=== PATIENT | male | born 1980 | race Caucasian/White ===

== ENCOUNTER → 2017-07-30 | Outpatient (CLI) | payer BC ==
[~2017-07-30] MED LIST: NORCO 325 MG-51 TAB PO
== END ==
LOC: COL.RAD 10:07
DX: K76.0 Fatty (change of) liver, not elsewhere classified (principal); R10.11 Right upper quadrant pain; R14.0 Abdominal distension (gaseous); R19.7 Diarrhea, unspecified

== ENCOUNTER → 2017-08-12 | Outpatient (CLI) | payer BC | LOC: COL.RAD 08:01 | DX: K82.8 Other specified diseases of gallbladder (principal); R19.7 Diarrhea, unspecified | CPT/HCPCS: A9537 ==

== ENCOUNTER 2017-09-22 08:35 | Day surgery (SDC) | payer BC ==
[~2017-09-22] VITALS: Ht 185.4 cm; Wt 123.4 kg
[2017-09-22 08:59] VITALS: BP 134/85; PULSE 66; TEMP 98.1
[2017-09-22] MEDS ORDERED: HYZAAR 12.5 MG-1 TAB PO (09:03)
[2017-09-22] MEDS ORDERED: PRILOSEC 20MG20 MG PO (09:03)
[2017-09-22] MEDS ORDERED: CARAFATE 1GM1 G PO (09:04)
[2017-09-22] MEDS ORDERED: INDERAL LA160 MG PO (09:04)
[2017-09-22] MEDS ORDERED: CAPACET 325 MG-1 CAP PO (09:06)
[2017-09-22] MEDS ORDERED: MOTRIN 600600 MG/TAB PO (15:50)
[2017-09-22] MEDS ORDERED: PERCOCET 325 MG1 TA2 PO (15:50)
[2017-09-22] MEDS ORDERED: COLACE 100100 MG/CAP PO (15:50)
[2017-09-22 16:30] VITALS: BP 126/83; PULSE 68; TEMP 98.4
[2017-09-22 16:45] VITALS: BP 120/81; PULSE 67
[2017-09-22 17:00] VITALS: BP 120/73; PULSE 66
[2017-09-22 18:46] VITALS: BP 128/91; PULSE 63; TEMP 97.9
== END 2017-09-22 17:20 | disposition home or self-care (01) ==
LOC: SDCO 08:35
DX: K81.1 Chronic cholecystitis (principal); I10 Essential (primary) hypertension; G43.909 Migraine, unspecified, not intractable, without status migrainosus
CPT/HCPCS: J0694; J1100; J1885; J2405; J2704; J2710; J7120; Q9967

== ENCOUNTER 2017-09-24 03:35 | Inpatient (IN) | payer BC ==
[~2017-09-24] VITALS: Ht 185.4 cm; Wt 120.5 kg
[~2017-09-24 03:35] MED LIST changes: +CAPACET 325 MG-1 CAP PO; +CARAFATE 1GM1 G PO; +COLACE 100100 MG/CAP PO; +HYZAAR 12.5 MG-1 TAB PO; +INDERAL LA160 MG PO; +MOTRIN 600600 MG/TAB PO; +PERCOCET 325 MG1 TA2 PO; +PRILOSEC 20MG20 MG PO
[2017-09-24 04:07] LABS: BASO # 0.1 (0.0-0.2); BASO % 0.4 % (0.0-2.0); EOS # 0.1 (0.0-0.7); EOS % 0.9 % (0-4.0); GRAN # 7.3 (1.4-6.5); GRAN % 60.7 % (42.2-75.2); HEMATOCRIT 44.7 % (42.0-52.0); LYMPH # 3.5 (1.2-3.4); LYMPH % 29.1 % (20.0-51.0); MEAN CELL VOLUME 91 fl (80.0-100.0); MEAN CORPUSCULAR HEMOGLOBIN 33 pg (27.0-31.0); MEAN CORPUSCULAR HGB CONC 36 g/dl (33.0-37.0); MEAN PLATELET VOLUME 9.9 fl (7.4-10.4); MONO % 8.6 % (1.7-9.3); PLATELET COUNT 222 K/mm3 (130-400); RED BLOOD COUNT 4.93 M/mm3 (4.20-5.60); REDCELL DISTRIBUTION WIDTH-CV 12.3 % (11.5-14.5)
[2017-09-24 04:15] LABS: ALBUMIN 4.3 gm/dL (3.5-5.0); BILIRUBIN,TOTAL 0.7 mg/dL (0.0-1.0); CALCIUM 9.2 mg/dL (8.4-10.2); CREATININE, serum 0.93 mg/dL (0.66-1.25); POTASSIUM 4.1 mmol/L (3.4-5.0)
[2017-09-24 07:45] LABS: COLLECTION METHOD CLEAN CATCH
[2017-09-24 07:51] LABS: MUCOUS Present /lpf; PH 6 (5-8); SQUAMOUS EPITHELIAL 0-2 /hpf; URINE APPEARANCE Clear; URINE BACTERIA None Seen /hpf; URINE BILIRUBIN Negative (NEGATIVE); URINE BLOOD Negative (NEGATIVE); URINE COLOR Yellow; URINE GLUCOSE Negative (NEGATIVE); URINE KETONE Negative (NEGATIVE); URINE LEUKOCYTE ESTERASE Negative (NEGATIVE); URINE NITRATE Negative (NEGATIVE); URINE PROTEIN(semi-quant) Negative (NEGATIVE); URINE RBC 0-2 /hpf; URINE UROBILINOGEN Negative (NEGATIVE)
[2017-09-24 10:52] VITALS: BP 150/88; PULSE 79; TEMP 97.4
[2017-09-24 10:57] VITALS: BP 150/88; PULSE 79; TEMP 97.4
[2017-09-24 15:24] VITALS: BP 148/81; PULSE 85; TEMP 98.8
[2017-09-24 17:32] LABS: BASO % 0.1 % (0.0-2.0); EOS # 0.1 (0.0-0.7); EOS % 0.9 % (0-4.0); GRAN # 5.7 (1.4-6.5); GRAN % 74.5 % (42.2-75.2); HEMATOCRIT 42.3 % (42.0-52.0); HEMOGLOBIN 14.8 g/dl (13.5-18.0); LYMPH # 1.2 (1.2-3.4); MEAN CELL VOLUME 92 fl (80.0-100.0); MEAN CORPUSCULAR HEMOGLOBIN 32 pg (27.0-31.0); MEAN CORPUSCULAR HGB CONC 35 g/dl (33.0-37.0); MEAN PLATELET VOLUME 9.8 fl (7.4-10.4); MONO # 0.7 (0.1-0.6); MONO % 9.2 % (1.7-9.3); PLATELET COUNT 154 K/mm3 (130-400); RED BLOOD COUNT 4.61 M/mm3 (4.20-5.60); REDCELL DISTRIBUTION WIDTH-CV 12.5 % (11.5-14.5)
[2017-09-24 17:50] LABS: ALBUMIN 3.9 gm/dL (3.5-5.0); BILIRUBIN,TOTAL 1.1 mg/dL (0.0-1.0); CREATININE, serum 0.8 mg/dL (0.66-1.25); POTASSIUM 4.1 mmol/L (3.4-5.0)
[2017-09-24 19:39] VITALS: BP 157/90; PULSE 95; TEMP 99.7
[2017-09-24 20:54] VITALS: TEMP 98.4
[2017-09-25] VITALS (12 sets, daily range): BP systolic 126–146; BP diastolic 79–89; PULSE 81–92; TEMP 98.1–99.1
[2017-09-25 06:11] LABS: BASO % 0.2 % (0.0-2.0); EOS # 0.1 (0.0-0.7); EOS % 0.8 % (0-4.0); GRAN # 4.6 (1.4-6.5); GRAN % 73.2 % (42.2-75.2); HEMATOCRIT 40.6 % (42.0-52.0); HEMOGLOBIN 14.3 g/dl (13.5-18.0); LYMPH # 0.9 (1.2-3.4); LYMPH % 14.4 % (20.0-51.0); MEAN CELL VOLUME 90 fl (80.0-100.0); MEAN CORPUSCULAR HEMOGLOBIN 32 pg (27.0-31.0); MEAN CORPUSCULAR HGB CONC 35 g/dl (33.0-37.0); MEAN PLATELET VOLUME 9.7 fl (7.4-10.4); MONO # 0.7 (0.1-0.6); MONO % 11.1 % (1.7-9.3); PLATELET COUNT 140 K/mm3 (130-400); RED BLOOD COUNT 4.49 M/mm3 (4.20-5.60)
[2017-09-25 06:30] LABS: ALBUMIN 3.6 gm/dL (3.5-5.0); BILIRUBIN,TOTAL 1.4 mg/dL (0.0-1.0); CALCIUM 8.7 mg/dL (8.4-10.2); CREATININE, serum 0.92 mg/dL (0.66-1.25); POTASSIUM 4.1 mmol/L (3.4-5.0); TOTAL PROTEIN 6.8 gm/dL (6.4-8.2)
[2017-09-26] VITALS (7 sets, daily range): BP systolic 122–152; BP diastolic 78–97; PULSE 73–95; TEMP 97.7–99.1
[2017-09-26 07:04] LABS: BASO % 0.2 % (0.0-2.0); EOS # 0.1 (0.0-0.7); EOS % 1.5 % (0-4.0); GRAN # 4.9 (1.4-6.5); GRAN % 75.9 % (42.2-75.2); HEMATOCRIT 39.3 % (42.0-52.0); HEMOGLOBIN 13.8 g/dl (13.5-18.0); LYMPH # 0.8 (1.2-3.4); LYMPH % 12.6 % (20.0-51.0); MEAN CELL VOLUME 92 fl (80.0-100.0); MEAN CORPUSCULAR HEMOGLOBIN 32 pg (27.0-31.0); MEAN CORPUSCULAR HGB CONC 35 g/dl (33.0-37.0); MEAN PLATELET VOLUME 10.5 fl (7.4-10.4); MONO # 0.6 (0.1-0.6); MONO % 9.2 % (1.7-9.3); PLATELET COUNT 156 K/mm3 (130-400); RED BLOOD COUNT 4.27 M/mm3 (4.20-5.60)
[2017-09-26 07:18] LABS: ALBUMIN 3.5 gm/dL (3.5-5.0); BILIRUBIN,TOTAL 0.8 mg/dL (0.0-1.0); CALCIUM 8.8 mg/dL (8.4-10.2); CREATININE, serum 0.89 mg/dL (0.66-1.25); POTASSIUM 3.8 mmol/L (3.4-5.0); TOTAL PROTEIN 6.6 gm/dL (6.4-8.2)
[2017-09-26 16:39] LABS: ALBUMIN 3.9 gm/dL (3.5-5.0); BILIRUBIN,TOTAL 0.8 mg/dL (0.0-1.0); CALCIUM 8.9 mg/dL (8.4-10.2); CREATININE, serum 0.9 mg/dL (0.66-1.25); POTASSIUM 4.1 mmol/L (3.4-5.0)
[2017-09-27] VITALS (13 sets, daily range): BP systolic 116–139; BP diastolic 72–93; PULSE 87–95; TEMP 98.4–99.7
[2017-09-27 06:45] LABS: HEMATOCRIT 39.1 % (42.0-52.0); MEAN CELL VOLUME 90 fl (80.0-100.0); MEAN CORPUSCULAR HEMOGLOBIN 32 pg (27.0-31.0); MEAN CORPUSCULAR HGB CONC 36 g/dl (33.0-37.0); MEAN PLATELET VOLUME 9.8 fl (7.4-10.4); PLATELET COUNT 187 K/mm3 (130-400); RED BLOOD COUNT 4.36 M/mm3 (4.20-5.60); REDCELL DISTRIBUTION WIDTH-CV 11.9 % (11.5-14.5)
[2017-09-27 07:15] LABS: ALBUMIN 3.5 gm/dL (3.5-5.0); BILIRUBIN,TOTAL 0.7 mg/dL (0.0-1.0); CALCIUM 8.8 mg/dL (8.4-10.2); CREATININE, serum 0.79 mg/dL (0.66-1.25); POTASSIUM 3.7 mmol/L (3.4-5.0); TOTAL PROTEIN 6.7 gm/dL (6.4-8.2)
[2017-09-28 01:58] VITALS: BP 119/60; PULSE 83; TEMP 98.7
[2017-09-28 05:13] VITALS: BP 115/70; PULSE 77; TEMP 98
[2017-09-28 07:09] LABS: BASO % 0.3 % (0.0-2.0); EOS # 0.1 (0.0-0.7); EOS % 1.7 % (0-4.0); GRAN # 4.7 (1.4-6.5); GRAN % 79.7 % (42.2-75.2); HEMATOCRIT 37.9 % (42.0-52.0); HEMOGLOBIN 13.4 g/dl (13.5-18.0); LYMPH # 0.6 (1.2-3.4); LYMPH % 9.3 % (20.0-51.0); MEAN CELL VOLUME 91 fl (80.0-100.0); MEAN CORPUSCULAR HEMOGLOBIN 32 pg (27.0-31.0); MEAN CORPUSCULAR HGB CONC 35 g/dl (33.0-37.0); MEAN PLATELET VOLUME 9.7 fl (7.4-10.4); MONO # 0.5 (0.1-0.6); MONO % 8.5 % (1.7-9.3); PLATELET COUNT 204 K/mm3 (130-400); RED BLOOD COUNT 4.17 M/mm3 (4.20-5.60); REDCELL DISTRIBUTION WIDTH-CV 12.2 % (11.5-14.5)
[2017-09-28 07:26] LABS: ALBUMIN 3.3 gm/dL (3.5-5.0); CALCIUM 8.7 mg/dL (8.4-10.2); CREATININE, serum 0.9 mg/dL (0.66-1.25); POTASSIUM 3.5 mmol/L (3.4-5.0); TOTAL PROTEIN 6.5 gm/dL (6.4-8.2)
[2017-09-28 10:00] VITALS: BP 114/63; PULSE 101; TEMP 98.8
[2017-09-28 16:42] VITALS: BP 99/58; PULSE 100; TEMP 98.6
[2017-09-28 18:30] VITALS: BP 114/63; PULSE 88; TEMP 97.7
[2017-09-28 22:00] VITALS: BP 113/69; PULSE 90; TEMP 98.2
[2017-09-29 05:12] VITALS: BP 121/68; PULSE 102; TEMP 99.4
[2017-09-29 06:33] LABS: BASO % 0.3 % (0.0-2.0); EOS # 0.1 (0.0-0.7); EOS % 1.9 % (0-4.0); GRAN # 5.5 (1.4-6.5); GRAN % 79.6 % (42.2-75.2); HEMOGLOBIN 12.3 g/dl (13.5-18.0); LYMPH # 0.6 (1.2-3.4); LYMPH % 8.6 % (20.0-51.0); MEAN CELL VOLUME 93 fl (80.0-100.0); MEAN CORPUSCULAR HEMOGLOBIN 32 pg (27.0-31.0); MEAN CORPUSCULAR HGB CONC 35 g/dl (33.0-37.0); MEAN PLATELET VOLUME 9.7 fl (7.4-10.4); MONO # 0.6 (0.1-0.6); MONO % 9.2 % (1.7-9.3); PLATELET COUNT 192 K/mm3 (130-400); RED BLOOD COUNT 3.83 M/mm3 (4.20-5.60); REDCELL DISTRIBUTION WIDTH-CV 12.2 % (11.5-14.5)
[2017-09-29 06:35] LABS: HEMATOCRIT 35.5 % (42.0-52.0)
[2017-09-29 06:43] LABS: ALBUMIN 3.1 gm/dL (3.5-5.0); BILIRUBIN,TOTAL 1.3 mg/dL (0.0-1.0); CALCIUM 8.5 mg/dL (8.4-10.2); CREATININE, serum 1.05 mg/dL (0.66-1.25); POTASSIUM 3.4 mmol/L (3.4-5.0); TOTAL PROTEIN 6.4 gm/dL (6.4-8.2)
[2017-09-29 09:33] VITALS: BP 119/74; PULSE 88; TEMP 98.4
[2017-09-29] MEDS ORDERED: PERCOCET 325 MG1 TA3 PO (11:41)
[2017-09-29] MEDS ORDERED: MOTRIN 600600 MG/TAB PO (11:42)
[2017-09-29] MEDS ORDERED: NEURONTIN100 MG/CAP PO (11:42)
[2017-09-29 13:20] VITALS: BP 134/82; PULSE 94; TEMP 99.3
== END 2017-09-29 15:00 | disposition home or self-care (01) | DRG 444 ==
LOC: COL.ER 03:35 → JCC 05:15
PROVIDERS: Emergency Medicine; Internal Medicine Gastroenterology; Surgery
PROC: 0F798DZ Dilation of Common Bile Duct with Intraluminal Device, Via Natural or Artificial Opening Endoscopic (ICD-10-PCS; principal; 2017-09-25 21:00)
DX: K83.2 Perforation of bile duct (principal); K85.90 Acute pancreatitis without necrosis or infection, unspecified; K29.30 Chronic superficial gastritis without bleeding; I10 Essential (primary) hypertension
CPT/HCPCS: A9537; C1769; C2625; G0378; J0744; J1885; J2060; J2250; J2270; J2405; J2550; J2704; J3010; J7030; J7120; J7121; Q9967

== ENCOUNTER 2017-11-26 13:47 | Day surgery (SDC) | payer BC ==
[~2017-11-26] VITALS: Ht 185.4 cm; Wt 121.1 kg
[2017-11-26] VITALS (7 sets, daily range): BP systolic 121–1321; BP diastolic 68–90; PULSE 64–77; TEMP 98.1–98.4
[~2017-11-26 13:47] MED LIST changes: +NEURONTIN100 MG/CAP PO; +PERCOCET 325 MG1 TA3 PO
== END 2017-11-26 17:30 | disposition home or self-care (01) ==
LOC: SDCO 13:47
DX: K80.50 Calculus of bile duct without cholangitis or cholecystitis without obstruction (principal); K83.8 Other specified diseases of biliary tract; K31.9 Disease of stomach and duodenum, unspecified; I10 Essential (primary) hypertension; K21.9 Gastro-esophageal reflux disease without esophagitis
CPT/HCPCS: OP; C1769; J2704; J7120; Q9967

== ENCOUNTER 2018-09-12 23:17 | Emergency (ER) | payer BC ==
[~2018-09-12] VITALS: Ht 185.4 cm; Wt 125.0 kg
[2018-09-12 23:20] VITALS: BP 137/95; TEMP 98.8
[2018-09-13 00:47] LABS: BASO % 0.3 % (0.0-2.0); EOS # 0.1 (0.0-0.7); EOS % 1.1 % (0-4.0); GRAN # 3.4 (1.4-6.5); GRAN % 53.5 % (42.2-75.2); HEMATOCRIT 46.5 % (42.0-52.0); HEMOGLOBIN 16.3 g/dl (13.5-18.0); LYMPH # 2.4 (1.2-3.4); LYMPH % 36.5 % (20.0-51.0); MEAN CELL VOLUME 89 fl (80.0-100.0); MEAN CORPUSCULAR HEMOGLOBIN 31 pg (27.0-31.0); MEAN CORPUSCULAR HGB CONC 35 g/dl (33.0-37.0); MEAN PLATELET VOLUME 9.8 fl (7.4-10.4); MONO # 0.5 (0.1-0.6); MONO % 7.5 % (1.7-9.3); PLATELET COUNT 186 K/mm3 (130-400); RED BLOOD COUNT 5.25 M/mm3 (4.20-5.60); REDCELL DISTRIBUTION WIDTH-CV 12.4 % (11.5-14.5)
[2018-09-13 00:57] LABS: ALANINE AMINOTRANSFERASE 64 U/L (21-72); ALBUMIN 4.6 gm/dL (3.5-5.0); ALKALINE PHOSPHATASE 107 U/L (50-136); ANION GAP 9 mmol/L (7-16); AST,SGOT 32 U/L (15-37); BILIRUBIN,TOTAL 0.6 mg/dL (0.0-1.0); BLOOD UREA NITROGEN 20 mg/dL (9-20); CALCIUM 9.9 mg/dL (8.4-10.2); CARBON DIOXIDE 26 mmol/L (22-30); CHLORIDE 103 mmol/L (98-107); CREATININE, serum 1.06 mg/dL (0.66-1.25); GLUCOSE 91 mg/dL (74-106); POTASSIUM 3.9 mmol/L (3.4-5.0); SODIUM 137 mmol/L (137-145); TOTAL PROTEIN 7.9 gm/dL (6.4-8.2)
[2018-09-13 00:58] LABS: C-REACTIVE PROTEIN < 0.5 mg/dL (0.0-0.9)
[2018-09-13 01:29] LABS: COLLECTION METHOD CLEAN CATCH
[2018-09-13 01:34] LABS: PH 6 (5-8); SQUAMOUS EPITHELIAL None Seen /hpf; URINE APPEARANCE Clear; URINE BACTERIA None Seen /hpf; URINE BILIRUBIN Negative (NEGATIVE); URINE BLOOD Negative (NEGATIVE); URINE COLOR Yellow; URINE GLUCOSE Negative (NEGATIVE); URINE KETONE Negative (NEGATIVE); URINE LEUKOCYTE ESTERASE Negative (NEGATIVE); URINE NITRATE Negative (NEGATIVE); URINE PROTEIN(semi-quant) Negative (NEGATIVE); URINE RBC 0-2 /hpf; URINE UROBILINOGEN Negative (NEGATIVE)
[2018-09-13 02:16] VITALS: PULSE 76
== END 2018-09-13 02:16 | disposition home or self-care (01) ==
LOC: COL.ER 23:17
PROVIDERS: Nurse Practitioner
DX: R41.82 Altered mental status, unspecified (principal); I10 Essential (primary) hypertension; K21.9 Gastro-esophageal reflux disease without esophagitis; Z90.49 Acquired absence of other specified parts of digestive tract

== ENCOUNTER 2021-06-26 16:23 | Outpatient (CLI) | payer BC ==
[~2021-06-26] VITALS: Ht 185.4 cm; Wt 131.8 kg
[2021-06-26] VITALS (9 sets, daily range): BP systolic 95–107; BP diastolic 60–69; PULSE 88–103; TEMP 100.6
[~2021-06-26 16:23] MED LIST changes: +INDERAL LA 80MG80 MG PO; -INDERAL LA160 MG PO
[2021-06-26] MEDS ORDERED: FIORICET 325 MG1 TA1 PO (17:26)
[2021-06-26] MEDS ORDERED: PRIL40 PO (17:27)
[2021-06-26] MEDS ORDERED: HYZAAR 12.5 MG-1 TAB PO (17:27)
[2021-06-26] MEDS ORDERED: DESYREL 50MG50 MG PO (17:28)
--- NOTE | 2021-06-26 18:30 | NUR ---
PLAN TO TRANSFER PT TO ER. REPORT TO BIA MONROE RN.
== END 2021-06-26 18:45 | disposition home or self-care (01) ==
LOC: EUO 16:23
DX: U07.1 COVID-19 (principal)
CPT/HCPCS: M0245

== ENCOUNTER 2021-06-26 18:54 | Inpatient (IN) | payer BC ==
[~2021-06-26] VITALS: Ht 185.4 cm; Wt 138.9 kg
[~2021-06-26 18:54] MED LIST changes: +DESYREL 50MG50 MG PO; +FIORICET 325 MG1 TA1 PO; +PRIL40 PO
[2021-06-26 19:39] LABS: HEMATOCRIT 45.7 % (42.0-52.0); HEMOGLOBIN 16.1 g/dl (13.5-18.0); MEAN CELL VOLUME 88 fl (80.0-100.0); MEAN CORPUSCULAR HEMOGLOBIN 31 pg (27-31); MEAN CORPUSCULAR HGB CONC 35 g/dl (33.0-37.0); MEAN PLATELET VOLUME 10.2 fl (7.4-10.4); PLATELET COUNT 139 K/mm3 (130-400); RED BLOOD COUNT 5.17 M/mm3 (4.20-5.60); REDCELL DISTRIBUTION WIDTH-CV 12.3 % (11.5-14.5)
[2021-06-26 19:54] LABS: ALBUMIN 3.4 gm/dL (3.5-5.0); CALCIUM 8.7 mg/dL (8.4-10.2); CREATININE, serum 1.51 mg/dL (0.72-1.25); POTASSIUM 3.3 mmol/L (3.5-4.5); TOTAL PROTEIN 7.4 gm/dL (6.2-8.1)
[2021-06-26 20:10] LABS: TROPONIN-I 0.035 ng/mL (0.00-0.033)
[2021-06-26 20:33] LABS: C-REACTIVE PROTEIN 17.74 mg/dL (0.00-0.50)
[2021-06-26 20:41] LABS: ARTERIAL BLD GAS O2 SATURATION 92.3 % (92-100); ARTERIAL BLD GAS TCO2 CT 25.6; ARTERIAL BLOOD GAS BASE EXCESS 2.2 (-2-2); ARTERIAL BLOOD GAS HCO3 24.6 meq/L (22-26); ARTERIAL BLOOD GAS PCO2 32.3 mmHg (35-45)
[2021-06-26 20:49] LABS: INR 1.3 (0.8-3.0); PROTHROMBIN TIME 14.4 SECONDS (9.7-12.8)
[2021-06-26 21:08] LABS: BAND 7 % (0-10); LYMPHOCYTE 17 % (20.0-51.0); METAMYELOCYTE 1 % (0-0); NEUTROPHILS 71 % (42.0-75.2); PLATELET ESTIMATE NORMAL (NORMAL)
[2021-06-27 04:20] LABS: HEMOGLOBIN 14.9 g/dl (13.5-18.0); MEAN CELL VOLUME 88 fl (80.0-100.0); MEAN CORPUSCULAR HEMOGLOBIN 31 pg (27-31); MEAN CORPUSCULAR HGB CONC 36 g/dl (33.0-37.0); MEAN PLATELET VOLUME 10.5 fl (7.4-10.4); PLATELET COUNT 142 K/mm3 (130-400); RED BLOOD COUNT 4.79 M/mm3 (4.20-5.60); REDCELL DISTRIBUTION WIDTH-CV 12.6 % (11.5-14.5)
[2021-06-27 04:40] LABS: TROPONIN-I 6 HR POST INITIAL 0.022 ng/mL (0.00-0.033)
[2021-06-27 04:42] LABS: BILIRUBIN,TOTAL 0.7 mg/dL (0.2-1.2); CALCIUM 8.1 mg/dL (8.4-10.2); CREATININE, serum 1.2 mg/dL (0.72-1.25); POTASSIUM 3.8 mmol/L (3.5-4.5); TOTAL PROTEIN 6.6 gm/dL (6.2-8.1)
[2021-06-27 05:15] LABS: BAND 4 % (0-10); LYMPHOCYTE 19 % (20.0-51.0); NEUTROPHILS 70 % (42.0-75.2); PLATELET ESTIMATE NORMAL (NORMAL)
[2021-06-27 09:37] LABS: COLLECTION METHOD CLEAN CATCH
[2021-06-27 09:44] LABS: MUCOUS Present (NOT PRESENT); PH 5 (5-8); SQUAMOUS EPITHELIAL None Seen /hpf (0-10); URINE APPEARANCE Hazy (CLEAR/HAZY); URINE BACTERIA None Seen /hpf (NONE SEEN); URINE BILIRUBIN Negative (NEGATIVE); URINE BLOOD 1+ (NEGATIVE); URINE COLOR Yellow (YELLOW); URINE GLUCOSE Negative (NEGATIVE); URINE KETONE 1+ (NEGATIVE); URINE LEUKOCYTE ESTERASE Negative (NEGATIVE); URINE NITRATE Negative (NEGATIVE); URINE PROTEIN(semi-quant) 2+ (NEGATIVE); URINE RBC 0-2 /hpf (0-2); URINE UROBILINOGEN Negative (NEGATIVE)
--- NOTE | 2021-06-27 15:20 | NUR ---
Patient to room 304 from the ED. A&Ox4. VSS on oxymask rebreather. Airvo brought up with the patient. IV Cdi. Denies pain and discomfort. Nurse oriented the patient to location, room and call light. No further needs expressed. Droplet/contact precautions in place. Call light within reach
--- NOTE | 2021-06-27 15:34 | NUR ---
Engine Room Helper attempted to contact patient by room phone and cell phone with no response. SW left a message on patient's cell phone. SW also attempted to contact patient's , Latricia (ph#[phone]) with no answer. The voicemail box was full so SW was unable to leave a message.
[2021-06-27 16:30] VITALS: BP 134/68; PULSE 93; TEMP 98
--- NOTE | 2021-06-27 17:42 | NUR ---
Patient resting in bed, A&Ox4. VSS. Airvo and denies SOB. IV CDI, fluids infusing. Denies pain and discomfort. Droplet/contact precautions in place. No further needs expressed. Call light within reach
[2021-06-27 20:15] VITALS: BP 133/72; PULSE 94; TEMP 98.1
--- NOTE | 2021-06-27 21:41 | NUR ---
Patient assessed around 2014. Alert and oriented, and able to make needs known. Denies having pain and discomfort at this time. Peripheral INT to left AC, PICC to RUE, with IV fluids and ABX running per orders. Denies SOB and dypsnea at rest, but does with exertion. Using urinal to help decrease exertion. On Airvo at 50L 85%. Telemetry in place: normal sinus. Patient voices no questions, needs, or concerns at this time. In bed with call light within reach.
[2021-06-27 23:28] VITALS: BP 133/66; PULSE 88; TEMP 97.9
[2021-06-28 04:30] VITALS: BP 120/79; PULSE 89; TEMP 98.7
[2021-06-28 06:00] LABS: HEMATOCRIT 42.7 % (42.0-52.0); HEMOGLOBIN 15.2 g/dl (13.5-18.0); MEAN CELL VOLUME 87 fl (80.0-100.0); MEAN CORPUSCULAR HEMOGLOBIN 31 pg (27-31); MEAN CORPUSCULAR HGB CONC 36 g/dl (33.0-37.0); MEAN PLATELET VOLUME 10.5 fl (7.4-10.4); PLATELET COUNT 193 K/mm3 (130-400); RED BLOOD COUNT 4.89 M/mm3 (4.20-5.60); REDCELL DISTRIBUTION WIDTH-CV 12.4 % (11.5-14.5)
--- NOTE | 2021-06-28 06:06 | NUR ---
Patient continues on Airvo, 50L 85%. Denies pain and discomfort. Voices no questions, needs, or concerns at this time. In bed with call light within reach.
[2021-06-28 06:10] LABS: BILIRUBIN,TOTAL 0.8 mg/dL (0.2-1.2); C-REACTIVE PROTEIN 9.63 mg/dL (0.00-0.50); CALCIUM 8.8 mg/dL (8.4-10.2); CREATININE, serum 0.78 mg/dL (0.72-1.25); TOTAL PROTEIN 6.9 gm/dL (6.2-8.1)
[2021-06-28 06:27] LABS: POTASSIUM 3.8 mmol/L (3.5-4.5)
[2021-06-28 06:43] LABS: BAND 3 % (0-10); LYMPHOCYTE 10 % (20.0-51.0); NEUTROPHILS 84 % (42.0-75.2)
[2021-06-28 06:44] LABS: PLATELET ESTIMATE NORMAL (NORMAL)
--- NOTE | 2021-06-28 09:06 | NUR ---
Patient sitting up in bed eating breakfast upon entering the room. Patient's called this morning and was given an update. Patient remains on airvo (50L @ 85%). Patient is pursed-lip breathing, this RN asked if he was SOB and he denied, stating "Its just more comfortable to breathe this way, with this thing in my nose". Patient c/o pain in his hips from "laying in bed for a week". This RN offered the patient tylenol or motrin and he declined. All morning medications administered and potassium is being replaced.
[2021-06-28 11:26] VITALS: BP 129/70; PULSE 91; TEMP 97.9
[2021-06-28 15:52] VITALS: BP 123/75; PULSE 95; TEMP 97.9
--- NOTE | 2021-06-28 18:07 | NUR ---
Patient has done okay today. Refused mirilax, stating "I haven't gone (BM) in a week because I haven't eaten. I want to eat first and see if I can go naturally". Patient remains on airvo, tolerating it well.
[2021-06-28 19:08] VITALS: BP 135/79; PULSE 90; TEMP 97.8
--- NOTE | 2021-06-28 20:30 | NUR ---
Initial shift assessment done, pleasant, alert/oriented, VSS, on Airvo, SOB with exertion, setting 49L,88%, with o2 sats 90-91%. Tele on. States having some hip pain/10,,will give Tylenol as ordered. IV fluids of NS at 50cc/hr. Pt states did have a bowel movement this afternoon.
[2021-06-28 23:58] VITALS: BP 117/70; PULSE 83; TEMP 97.7
[2021-06-29] VITALS (338 sets, daily range): BP systolic 92–121; BP diastolic 63–85; PULSE 73–82; TEMP 96.9–98.4; O2SAT 87–100
--- NOTE | 2021-06-29 05:57 | NUR ---
Not getting much sleep- remains on airvo,, 50L.85%, sats 92-93%, states had a coughing spell last night- does not want any meds now, states he will call if he needs something for cough -
[2021-06-29 06:25] LABS: HEMATOCRIT 41.2 % (42.0-52.0); HEMOGLOBIN 14.6 g/dl (13.5-18.0); MEAN CELL VOLUME 88 fl (80.0-100.0); MEAN CORPUSCULAR HEMOGLOBIN 31 pg (27-31); MEAN CORPUSCULAR HGB CONC 35 g/dl (33.0-37.0); MEAN PLATELET VOLUME 10.7 fl (7.4-10.4); PLATELET COUNT 198 K/mm3 (130-400); RED BLOOD COUNT 4.67 M/mm3 (4.20-5.60); REDCELL DISTRIBUTION WIDTH-CV 12.5 % (11.5-14.5)
[2021-06-29 06:41] LABS: ALBUMIN 2.7 gm/dL (3.5-5.0); BILIRUBIN,TOTAL 0.9 mg/dL (0.2-1.2); C-REACTIVE PROTEIN 7.68 mg/dL (0.00-0.50); CALCIUM 8.6 mg/dL (8.4-10.2); CREATININE, serum 0.73 mg/dL (0.72-1.25); POTASSIUM 3.4 mmol/L (3.5-4.5); TOTAL PROTEIN 6.3 gm/dL (6.2-8.1)
[2021-06-29 07:02] LABS: LYMPHOCYTE 6 % (20.0-51.0)
[2021-06-29 07:03] LABS: PLATELET ESTIMATE NORMAL (NORMAL)
[2021-06-29 07:04] LABS: NEUTROPHILS 91 % (42.0-75.2)
[2021-06-29 09:21] LABS: ARTERIAL BLD GAS TCO2 CT 19.7; ARTERIAL BLOOD GAS BASE EXCESS -1.8 (-2-2); ARTERIAL BLOOD GAS PO2 52.6 mmHg (80-100); ARTERIAL BLOOD GAS pH 7.52 (7.35-7.45)
[2021-06-29 09:22] LABS: ARTERIAL BLOOD GAS PCO2 23.8 mmHg (35-45)
--- NOTE | 2021-06-29 10:35 | NUR ---
Patient is very frustrated today, d/t him feeling like he isn't getting better. Patient's sats were maintaining in the high 80s, RT increased his airvo and he is now on 60L @ 90%. Patient will be going down to ICU. to be notified once patient is on the unit.
--- NOTE | 2021-06-29 21:13 | NUR ---
Patient assessed around 2014. Alert and oriented x 4, and able to make needs known. Patient is on Bipap with FiO2 at 75%. Reports that he feels as if he is breathing much better comparted to the last 2 nights with the Airvo. Voiced concerns that he felt as if the Bipap was turning off whenever he would start to fall asleep. Spoke to RT, and afterwards this nurse explained to patient that when he is falling asleep, his body starts to relax and does not breathe against the BIPAP as much as when he is awake, and that makes it work easier, but explained that the machine was not turning off. Patient voiced undestanding. LS CTA in upper lobes, diminished in lower. HRR. BSAx4. No edema. Voices no further questions, needs, or concerns at this time. Encouraged to call, and voiced understanding. In bed with call light within reach.
--- NOTE | 2021-06-29 22:38 | NUR ---
Patient's respirations running 40s-50s. During those times oxygen sats 89-91%. Spoke with ONUR Linder, new order for Ativan. Given per orders. Education provided again about BIPAP machine. This nurse updated RT on patient's status and feelings of machine not staying on while he sleeps. Requested that they also provide education to patient when able to.
--- NOTE | 2021-06-29 23:09 | NUR ---
Patient continues to have respiratory rate in the 40s-50s. SPO2 88-91% on Bipap with 75% FiO2. Updated Niyah. New order for Melatonin, and stated we would increase FiO2. Called RT, who recommended FiO2 be increased TO 90%. Increased FiO2 per RT.
[2021-06-30] VITALS (680 sets, daily range): BP systolic 70–163; BP diastolic 49–102; PULSE 45–79; TEMP 97.7–98.9; O2SAT 70–98
[2021-06-30 03:46] LABS: ARTERIAL BLD GAS O2 SATURATION 90.3 % (92-100); ARTERIAL BLD GAS TCO2 CT 26.8; ARTERIAL BLOOD GAS BASE EXCESS 2.6 (-2-2); ARTERIAL BLOOD GAS HCO3 25.7 meq/L (22-26); ARTERIAL BLOOD GAS PCO2 35.6 mmHg (35-45); ARTERIAL BLOOD GAS PO2 56.3 mmHg (80-100); ARTERIAL BLOOD GAS pH 7.48 (7.35-7.45)
--- NOTE | 2021-06-30 06:30 | NUR ---
This RN at bedside with ED physician, Dr. Maharaj, and RTs Myranda and Yossi at approximately 0550 for intubation. Etomidate 20mg and Rocuronium 100mg administered. Patient intubated at 0555 with an 8.0 ET tube located 26 at the teeth. A brief bradycardic episode noted on monitor following insertion of ET tube. HR noted to be in 30s for 5-10 seconds, however, patient quickly recovered. Chest XRAY obtained to confirm placement at 0610; verified by Dr. Maharja. Two soft-wrist restraints initiated for protection of lines and tubes. A 14Fr OG tube placed, located 65 at the teeth; placement verified by gastric auscultation. A 16Fr hayward catheter inserted with total of 10mL saline inserted into balloon. Propofol and Fentanyl drips initiated and titrated according to orders for sedation. Current vent settings are: rate of 20, tidal volume 650, PEEP 15, at 100% FiO2. Patient currently resting quietly in bed. All vitals within normal limits.
[2021-06-30 06:52] LABS: HEMATOCRIT 43.6 % (42.0-52.0); MEAN CELL VOLUME 90 fl (80.0-100.0); MEAN CORPUSCULAR HEMOGLOBIN 31 pg (27-31); MEAN CORPUSCULAR HGB CONC 34 g/dl (33.0-37.0); MEAN PLATELET VOLUME 10.4 fl (7.4-10.4); PLATELET COUNT 165 K/mm3 (130-400); RED BLOOD COUNT 4.83 M/mm3 (4.20-5.60); REDCELL DISTRIBUTION WIDTH-CV 12.8 % (11.5-14.5)
--- NOTE | 2021-06-30 06:58 | NUR ---
At approximately 0410, called [facility] to update on patient and request precedex drip or something to help patient relax to breathe with BIPAP. BIPAP had been maxed out by RT after ABG results came back, but patient continued to have respirations of 40s. [facility] stated that it sounded more like he needed to be intubated, but did give order. had charge nurse talk to [facility] physician. Afterwards, charge nurse and this nurse went to room to talk to patient about possibly needing to be intubated. Patient stated that if it came down to it he would want to be intubated. Patient upset and wanted to think about it. This nurse went to talk to patient around 0510, and at that time, patient stated that he wanted to be intubated, as he was feeling tired, and struggling to breathe. Updated charge nurse and warehouse supervisor, who took over cares for intubation. This nurse called and talked to at approximately 0520. Updated on patient and his wished to be intubated. Another nurse also spoke to and answered all questions prior to patient being intubated. At this time, 0705, patient is intubated and sedated. currently on zoom call with patient.
[2021-06-30 07:06] LABS: ALBUMIN 2.8 gm/dL (3.5-5.0); BILIRUBIN,TOTAL 1.1 mg/dL (0.2-1.2); CALCIUM 8.8 mg/dL (8.4-10.2); CREATININE, serum 0.75 mg/dL (0.72-1.25); POTASSIUM 3.7 mmol/L (3.5-4.5); TOTAL PROTEIN 6.5 gm/dL (6.2-8.1)
[2021-06-30 08:14] LABS: BAND 1 % (0-10); LYMPHOCYTE 8 % (20.0-51.0); NEUTROPHILS 87 % (42.0-75.2); PLATELET ESTIMATE NORMAL (NORMAL)
--- NOTE | 2021-06-30 09:10 | NUR ---
Patient coughing forcefully against the ventilator; peak pressures in the 40's. Sedation increased however this caused his BP to drop to the 70's. Dr. Ventura called and received telephone order for levophed. HR had been running in the 70's , however, within one minute of starting levophed and initial starting rate HR steadily dropped to the low 40's. Levophed placed on standby at this time. Patient stimulated and HR back up to the 70's. Levophed re-started but at 0.01 mcg/kg/min. HR initially decreased back down to the 50's but then returned to the 70's. Dr. Ventura notified; will continue to monitor.
--- NOTE | 2021-06-30 09:30 | NUR ---
Patient's right arm is swollen and firm to touch and visibly larger than the left arm. Also a purplish reddish discoloration is noted. Radial pulse found with dopplar. Dr. Ventura notified and observed the arm in person. Suspects a DVT althout unable to confirm with a venous dupplex until Saturday 07/01. Will increase lovenox dosage. Dr. Ventura notified surgery to place a subclavian and can remove PICC line once other line is secured.
--- NOTE | 2021-06-30 11:24 | NUR ---
Dr. Og at bedside to place a central line. Finished at 1138. During insertion patient was placed in trendelenburg; 02 decreased to mid 80's. Dr. Og notifed. No other issues noted during insertion. Attempted to call xray twice but no answer. Dr. Og stated ok to use line at this time and will get xray as soon as available. Anethsia at bedside to place an arterial line once central line is finished.
[2021-06-30 12:42] LABS: ARTERIAL BLD GAS O2 SATURATION 90.2 % (92-100); ARTERIAL BLD GAS TCO2 CT 26.8; ARTERIAL BLOOD GAS BASE EXCESS -0.7 (-2-2); ARTERIAL BLOOD GAS HCO3 25.3 meq/L (22-26); ARTERIAL BLOOD GAS PCO2 46.9 mmHg (35-45); ARTERIAL BLOOD GAS pH 7.35 (7.35-7.45)
--- NOTE | 2021-06-30 15:45 | NUR ---
Right picc line discontinued without issue. Observed tip was intact. Measured 44 cm which matched with initial picc insertion length. Right arm appears more swollen and firm to touch than earlier assessment. Dr. Ventura notified. Received orders to wrap and elevate arm and initiate heparin drip.
--- NOTE | 2021-06-30 16:30 | NUR ---
Patient received 120 mg dose of lovenox this shift. Discussed with Dr. Ventura and Dr. Cortez and will wait to intiate heparin drip until 2230 this evening.
--- NOTE | 2021-06-30 17:00 | NUR ---
Sedation vacation not performed due to 02 ranging mid to upper 80's on 100%. Coughs forecefully and desaturates further with arousal. PT also not proned due to not being stable enough at this time.
[2021-06-30 21:57] LABS: PARTIAL THROMBOPLASTIN TIME 28.8 SECONDS (26.0-37.0)
[2021-07-01] VITALS (674 sets, daily range): BP systolic 93–158; BP diastolic 55–91; PULSE 58–75; TEMP 98.7–99.7; O2SAT 82–100
[2021-07-01 03:24] LABS: ARTERIAL BLD GAS O2 SATURATION 91.3 % (92-100); ARTERIAL BLD GAS TCO2 CT 27.1; ARTERIAL BLOOD GAS BASE EXCESS -0.4 (-2-2); ARTERIAL BLOOD GAS HCO3 25.7 meq/L (22-26); ARTERIAL BLOOD GAS PCO2 46.8 mmHg (35-45); ARTERIAL BLOOD GAS PO2 63.1 mmHg (80-100); ARTERIAL BLOOD GAS pH 7.36 (7.35-7.45)
[2021-07-01 04:34] LABS: HEMOGLOBIN 14.2 g/dl (13.5-18.0); MEAN CELL VOLUME 92 fl (80.0-100.0); MEAN CORPUSCULAR HEMOGLOBIN 31 pg (27-31); MEAN CORPUSCULAR HGB CONC 34 g/dl (33.0-37.0); MEAN PLATELET VOLUME 10.3 fl (7.4-10.4); PLATELET COUNT 218 K/mm3 (130-400); RED BLOOD COUNT 4.57 M/mm3 (4.20-5.60); REDCELL DISTRIBUTION WIDTH-CV 12.7 % (11.5-14.5)
[2021-07-01 04:54] LABS: ALBUMIN 2.7 gm/dL (3.5-5.0); BILIRUBIN,TOTAL 0.7 mg/dL (0.2-1.2); C-REACTIVE PROTEIN 6.01 mg/dL (0.00-0.50); CALCIUM 8.5 mg/dL (8.4-10.2); CREATININE, serum 0.85 mg/dL (0.72-1.25); MAGNESIUM 2.4 mg/dL (1.6-2.6); PHOSPHOROUS 4.3 mg/dL (2.3-4.7); POTASSIUM 4.3 mmol/L (3.5-4.5)
[2021-07-01 05:36] LABS: BAND 1 % (0-10); EOSINOPHIL 1 % (0-4); LYMPHOCYTE 10 % (20.0-51.0); NEUTROPHILS 84 % (42.0-75.2); PLATELET ESTIMATE NORMAL (NORMAL)
[2021-07-01 09:38] LABS: PARTIAL THROMBOPLASTIN TIME 31.9 SECONDS (26.0-37.0)
--- NOTE | 2021-07-01 13:44 | NUR ---
Circuit Breaker Mechanic contacted patient's , Latricia to complete initial intake as patient is currently intubated. Patient and his live in [place] and patient sees Dr. Browning for primary care. Patient obtains medications from [facility] with no difficulties. Patient does not use any DME and is normally independent with ADLS. Latricia does not think that patient has ever completed DPOA-HC. Latricia would be patient's legal next of kin and decision maker. Latricia asked KUMAR if the hospital has a palliative care team and is interested in any supports or services they can provide. KUMAR notified hospitalist.
--- NOTE | 2021-07-01 18:44 | NUR ---
SEDATION VACATION NOT DONE TODAY PATIENT IS ALERT AND ORIENTED ENOUGH TO FOLLOW COMMANDS AND RESPOND APPROPRIATELY TO QUESTIONS.
[2021-07-02] VITALS (647 sets, daily range): BP systolic 95–159; BP diastolic 50–88; PULSE 60–79; TEMP 98.8–99.5; O2SAT 80–100
[2021-07-02 04:33] LABS: ARTERIAL BLD GAS O2 SATURATION 96.9 % (92-100); ARTERIAL BLOOD GAS BASE EXCESS 0.2 (-2-2); ARTERIAL BLOOD GAS HCO3 28.2 meq/L (22-26); ARTERIAL BLOOD GAS PO2 98.2 mmHg (80-100); ARTERIAL BLOOD GAS pH 7.29 (7.35-7.45)
[2021-07-02 05:09] LABS: HEMATOCRIT 41.5 % (42.0-52.0); HEMOGLOBIN 14.1 g/dl (13.5-18.0); MEAN CELL VOLUME 92 fl (80.0-100.0); MEAN CORPUSCULAR HEMOGLOBIN 31 pg (27-31); MEAN CORPUSCULAR HGB CONC 34 g/dl (33.0-37.0); MEAN PLATELET VOLUME 10.6 fl (7.4-10.4); PLATELET COUNT 243 K/mm3 (130-400); REDCELL DISTRIBUTION WIDTH-CV 12.5 % (11.5-14.5)
[2021-07-02 05:27] LABS: CALCIUM 8.5 mg/dL (8.4-10.2); CREATININE, serum 0.8 mg/dL (0.72-1.25); MAGNESIUM 2.3 mg/dL (1.6-2.6); PHOSPHOROUS 4.9 mg/dL (2.3-4.7); POTASSIUM 4.8 mmol/L (3.5-4.5)
[2021-07-02 05:31] LABS: BAND 8 % (0-10); EOSINOPHIL 1 % (0-4); LYMPHOCYTE 17 % (20.0-51.0); NEUTROPHILS 71 % (42.0-75.2); PLATELET ESTIMATE NORMAL (NORMAL)
--- NOTE | 2021-07-02 06:23 | NUR ---
PT ABLE TO NODE HEAD TO QUESTIONS AND FOLLOW COMMANDS APPROPRIATELY. VITALS STABEL, O2 95%-100%, BP SUPPORTED BY LEVOPHED WITH MAPS >65. TMAX WAS 99.6. UOP FOR SHIFT WAS 700 ML, NO BM. TOLERATING TUBE FEEDINGS. PT HAVING SMALL TO MODERATE AMOUNT OF DARK BLOODY PINK TINGED COLOR SPUTUMN FROM INLINE SUCTION. VENT SETTINGS REMAIN THE SAME. PEAK PRESSURES 40-60, RT WAS NOTIFIED. SEE MAR/EMAR FOR OTHER DETAILS.
--- NOTE | 2021-07-02 07:26 | NUR ---
Report received from IRIS Hurtado; patient is sedated but responsive and vital signs are stable.
--- NOTE | 2021-07-02 18:06 | NUR ---
Sedation vacation not performed today as patient was proned.
[2021-07-03] VITALS (641 sets, daily range): BP systolic 108–186; BP diastolic 58–97; PULSE 61–81; TEMP 97.9–99.8; O2SAT 82–100
[2021-07-03 04:46] LABS: HEMATOCRIT 41.2 % (42.0-52.0); HEMOGLOBIN 14.1 g/dl (13.5-18.0); MEAN CELL VOLUME 93 fl (80.0-100.0); MEAN CORPUSCULAR HEMOGLOBIN 32 pg (27-31); MEAN CORPUSCULAR HGB CONC 34 g/dl (33.0-37.0); MEAN PLATELET VOLUME 10.3 fl (7.4-10.4); PLATELET COUNT 232 K/mm3 (130-400); RED BLOOD COUNT 4.44 M/mm3 (4.20-5.60); REDCELL DISTRIBUTION WIDTH-CV 12.5 % (11.5-14.5)
[2021-07-03 04:59] LABS: C-REACTIVE PROTEIN 1.66 mg/dL (0.00-0.50); CALCIUM 8.4 mg/dL (8.4-10.2); CREATININE, serum 0.75 mg/dL (0.72-1.25); MAGNESIUM 2.2 mg/dL (1.6-2.6); POTASSIUM 4.8 mmol/L (3.5-4.5)
[2021-07-03 05:15] LABS: BAND 3 % (0-10); EOSINOPHIL 3 % (0-4); LYMPHOCYTE 14 % (20.0-51.0); NEUTROPHILS 79 % (42.0-75.2); PLATELET ESTIMATE NORMAL (NORMAL)
[2021-07-03 05:24] LABS: ARTERIAL BLD GAS O2 SATURATION 93.4 % (92-100); ARTERIAL BLD GAS TCO2 CT 29.5; ARTERIAL BLOOD GAS BASE EXCESS 1.4 (-2-2); ARTERIAL BLOOD GAS HCO3 27.9 meq/L (22-26); ARTERIAL BLOOD GAS PCO2 51.3 mmHg (35-45); ARTERIAL BLOOD GAS PO2 67.2 mmHg (80-100); ARTERIAL BLOOD GAS pH 7.35 (7.35-7.45)
--- NOTE | 2021-07-03 19:56 | NUR ---
Patient proned this afternoon; sedation vacation not performed today. Patient is alert and oriented enough to follow commands and responds appropriately while on sedation.
[2021-07-04] VITALS (717 sets, daily range): BP systolic 91–149; BP diastolic 51–82; PULSE 61–87; TEMP 98.9–99.5; O2SAT 89–100
[2021-07-04 05:20] LABS: HEMATOCRIT 41.1 % (42.0-52.0); HEMOGLOBIN 13.7 g/dl (13.5-18.0); MEAN CELL VOLUME 93 fl (80.0-100.0); MEAN CORPUSCULAR HEMOGLOBIN 31 pg (27-31); MEAN CORPUSCULAR HGB CONC 33 g/dl (33.0-37.0); PLATELET COUNT 203 K/mm3 (130-400); RED BLOOD COUNT 4.41 M/mm3 (4.20-5.60); REDCELL DISTRIBUTION WIDTH-CV 12.4 % (11.5-14.5)
[2021-07-04 05:32] LABS: ARTERIAL BLD GAS O2 SATURATION 97.1 % (92-100); ARTERIAL BLD GAS TCO2 CT 32.6; ARTERIAL BLOOD GAS BASE EXCESS 3.8 (-2-2); ARTERIAL BLOOD GAS HCO3 30.8 meq/L (22-26); ARTERIAL BLOOD GAS pH 7.35 (7.35-7.45)
--- NOTE | 2021-07-04 05:34 | NUR ---
SEDATION VACATION NOT DONE DUE TO PT IN PRONE POSITION. TOLERATING VENT WELL AT THIS TIME.
[2021-07-04 05:38] LABS: ALBUMIN 3.1 gm/dL (3.5-5.0); BILIRUBIN,TOTAL 0.6 mg/dL (0.2-1.2); C-REACTIVE PROTEIN 0.89 mg/dL (0.00-0.50); CALCIUM 8.6 mg/dL (8.4-10.2); CREATININE, serum 0.72 mg/dL (0.72-1.25); POTASSIUM 4.1 mmol/L (3.5-4.5); TOTAL PROTEIN 6.2 gm/dL (6.2-8.1)
--- NOTE | 2021-07-04 05:59 | NUR ---
PT INTUBATED, SEDATED, AND PRONE. TOLERATING VENT AND PRONE POSITION AT THIS TIME. UNEVENTFUL NIGHT.
[2021-07-04 07:14] LABS: BAND 12 % (0-10); EOSINOPHIL 1 % (0-4); LYMPHOCYTE 15 % (20.0-51.0); METAMYELOCYTE 3 % (0-0); NEUTROPHILS 67 % (42.0-75.2); PLATELET ESTIMATE NORMAL (NORMAL)
--- NOTE | 2021-07-04 09:19 | NUR ---
REPORT RECEIVED FROM IRIS TADEO. FC TO DEPENDENT DRAINAGE. ARTERIAL LINE IN PLACE IN LEFT WRIST. LEFT SUBCLAVIAN TRIPLE LUMEN IN PLACE; SITE CLEAN, DRY, AND INTACT; SEE GTT FLOW SHEET FOR INFUSIONS. PT CURRENTLY IN PRONE POSITION. 8.0 ETT 25 CM AT TEETH. CURRENT VENT SETTINGS; AC MODE, TV 430, PEEP 16, FIO2 90%, RATE 28. PT APPEARS TO BE WELL SEDATED AND IS ACCEPTING VENTILATION. OG TUBE 65 AT TEETH WITH PIVOT INFUSING AT 40ML/HR. BILATERAL WRIST RESTAINTS IN PLACE. VITAL SIGNS STABLE.
--- NOTE | 2021-07-04 09:45 | NUR ---
PT REPOSITIONED FROM PRONE TO SUPINE WITH ASSISTANCE FROM RT AND PHYSICAL THERAPY. PT TOLERATED WELL AND VITAL SIGNS REMAINED STABLE THROUGHOUT. PT NOW LIES SUPINE WITH HOB ELEVATED AT 30 DEGREES. LINENS CHANGED AND PT WIPED DOWN. CLEAN GOWN APPLIED. BILATERL WRIST RESTRAINTS REMAIN IN PLACE.
--- NOTE | 2021-07-04 11:44 | NUR ---
HEPARIN GTT DISCONTINUED AT THIS TIME PER DR. RAMIREZ'S ORDER. SUBQ LOVENOX ORDERED A REPLACEMENT.
--- NOTE | 2021-07-04 15:10 | NUR ---
PT PLACED IN PRONE POSITION WITH THE ASSISTANCE OF PHYSICAL THERAYPY AND RT. PT TOLERATED REPOSITIONING WELL AND HAD NO SIGNIFICANT CHANGE IN VS. PT'S FACE FACES RIGHT WITH RIGHT ARM UP BY FACE. BILATERAL WRIST RESTRAINTS REMAIN IN PLACE. BED PLACED IN REVERSE TRENDELENBERG.
--- NOTE | 2021-07-04 18:09 | NUR ---
NOT APPROPRIATE FOR PT AT THIS TIME DUE BEING PLACED IN PRONE POSITION; REQUIRED HEAVEY SEDATION TO KEEP PT COMFORTABLE IN THIS POSITION.
[2021-07-05] VITALS (705 sets, daily range): BP systolic 118–144; BP diastolic 65–100; PULSE 94–112; TEMP 98.1–99.6; O2SAT 71–100
[2021-07-05 05:38] LABS: HEMOGLOBIN 13.3 g/dl (13.5-18.0); MEAN CELL VOLUME 92 fl (80.0-100.0); MEAN CORPUSCULAR HEMOGLOBIN 31 pg (27-31); MEAN CORPUSCULAR HGB CONC 34 g/dl (33.0-37.0); MEAN PLATELET VOLUME 10.9 fl (7.4-10.4); PLATELET COUNT 166 K/mm3 (130-400); RED BLOOD COUNT 4.25 M/mm3 (4.20-5.60); REDCELL DISTRIBUTION WIDTH-CV 12.6 % (11.5-14.5)
[2021-07-05 05:45] LABS: ARTERIAL BLD GAS TCO2 CT 30.7; ARTERIAL BLOOD GAS BASE EXCESS 3.8 (-2-2); ARTERIAL BLOOD GAS HCO3 29.2 meq/L (22-26); ARTERIAL BLOOD GAS PCO2 47.3 mmHg (35-45); ARTERIAL BLOOD GAS PO2 64.6 mmHg (80-100); ARTERIAL BLOOD GAS pH 7.41 (7.35-7.45)
[2021-07-05 05:55] LABS: C-REACTIVE PROTEIN 0.53 mg/dL (0.00-0.50); CALCIUM 8.6 mg/dL (8.4-10.2); CREATININE, serum 0.65 mg/dL (0.72-1.25)
[2021-07-05 05:56] LABS: BAND 13 % (0-10); BASOPHIL 1 % (0-2); LYMPHOCYTE 7 % (20.0-51.0); METAMYELOCYTE 7 % (0-0); NEUTROPHILS 69 % (42.0-75.2); PLATELET ESTIMATE NORMAL (NORMAL)
[2021-07-05 05:57] LABS: POLYCHROMASIA 1+
--- NOTE | 2021-07-05 07:00 | NUR ---
Assumed care of pt. All lines,tubed,GTTS checked and verified. VSS. Pt is lightly sedated and will open eyes to voice and follow simpled commands.
--- NOTE | 2021-07-05 12:00 | NUR ---
PER orders, lower PTs peep down to 8. At this time the PTs peep was lowered from 12 to 10. Will monitor PT.
--- NOTE | 2021-07-05 17:00 | NUR ---
PTs peep is now 8. Will continue to monitor.
--- NOTE | 2021-07-05 17:00 | NUR ---
PT is lightly sedated, can follow commands. No sedation vacation is needed at this time.
[2021-07-06] VITALS (646 sets, daily range): BP systolic 89–137; BP diastolic 59–88; PULSE 72–108; TEMP 98.9–99.6; O2SAT 82–100
[2021-07-06 04:57] LABS: ARTERIAL BLD GAS O2 SATURATION 94.1 % (92-100); ARTERIAL BLD GAS TCO2 CT 36.6; ARTERIAL BLOOD GAS BASE EXCESS 10.4 (-2-2); ARTERIAL BLOOD GAS HCO3 35.2 meq/L (22-26); ARTERIAL BLOOD GAS PCO2 47.3 mmHg (35-45); ARTERIAL BLOOD GAS PO2 68.3 mmHg (80-100); ARTERIAL BLOOD GAS pH 7.49 (7.35-7.45)
[2021-07-06 05:50] LABS: HEMOGLOBIN 12.7 g/dl (13.5-18.0); MEAN CELL VOLUME 93 fl (80.0-100.0); MEAN CORPUSCULAR HEMOGLOBIN 32 pg (27-31); MEAN CORPUSCULAR HGB CONC 34 g/dl (33.0-37.0); MEAN PLATELET VOLUME 11.1 fl (7.4-10.4); PLATELET COUNT 151 K/mm3 (130-400); RED BLOOD COUNT 3.97 M/mm3 (4.20-5.60); REDCELL DISTRIBUTION WIDTH-CV 12.8 % (11.5-14.5)
[2021-07-06 06:11] LABS: C-REACTIVE PROTEIN 0.31 mg/dL (0.00-0.50); CALCIUM 8.5 mg/dL (8.4-10.2); CREATININE, serum 0.66 mg/dL (0.72-1.25); POTASSIUM 3.9 mmol/L (3.5-4.5)
[2021-07-06 06:48] LABS: BAND 9 % (0-10); EOSINOPHIL 1 % (0-4); LYMPHOCYTE 18 % (20.0-51.0); METAMYELOCYTE 2 % (0-0); NEUTROPHILS 65 % (42.0-75.2)
[2021-07-06 06:49] LABS: ANISOCYTOSIS 1+
--- NOTE | 2021-07-06 07:00 | NUR ---
REPORT RECEIVED FROM IRIS TADEO. FC TO DEPENDENT DRAINAGE. LEFT SUBCLAVIAN TRIPLE LUMEN IN PLACE; CLEAN, DRY, AND INTACT; SEE GTT FLOW SHEET FOR INFUSIONS AND RATES. BILATERAL WRIST RESTRAINTS IN PLACE. 8.[address] WITH CURRENT VENT SETTINGS; TV 430, PEEP 8, FIO2 60%, RR 28. ETT 25CM AT TEETH. OG TUBE IN PLACE: 65CM AT TEETH; INFUSING TF. VITAL SIGNS STABLE.
--- NOTE | 2021-07-06 09:09 | NUR ---
THIS NURSE SPOKE WITH PT'S JACQUELYN AND GAVE HER UPDATE. LET HER KNOW PT HAD AN UNEVENTFULL NIGHT. ABG LOOKS IMPROVED FROM YESTERDAY. DISCUSSED PLAN OF CARE FOR TODAY. JACQUELYN GAVE THE OKAY TO TRIM/SHAVE PT'S THURMAN IN ORDER TO REPOSITION ETT HOLISTER. THIS NURSE ALSO LET JACQUELYN KNOW THAT PT HAS DEVELOPED BREAKDOWN BENEATH THE CURRENT NEDA ON LEFT CHEEK. JACQUELYN EXPRESSED UNDERSTANDING. ALL QUESTIONS WERE ANSWERED APPROPRIATELY.
--- NOTE | 2021-07-06 13:04 | NUR ---
PROPOFOL DISCONTINUES DUE TO PT HAVING HIGH TRIGLYCERIDE LEVELS.
--- NOTE | 2021-07-06 13:05 | NUR ---
GTT INITIATED AT 5MG/HR PER DR. MCINTYRE.
--- NOTE | 2021-07-06 17:02 | NUR ---
THIS NURSE SHAVED PT'S THURMAN THEN WITH ASSISTANCE OF RT NEDA WAS REMOVED AND REPLACED WITH NEW NEDA. OLD NEDA WAS REMOVED IT REVEALED BILATERAL PRESSURE ULCERS ON PT'S CHEEKS. THESE WOUNDS WERE CLEANED WITH SALINE THEN LEFT OPEN TO AIR. PT WAS THE PLACED IN PRONE POSITION. PT TOLERATED POSITION CHANGE. BILATERAL WRIST RESTRAINTS REMAIN IN PLACE. VITAL SIGNS STABLE.
--- NOTE | 2021-07-06 17:48 | NUR ---
NOT APPROPRIATE FOR PT AT THIS TIME DUE TO PT BEING IN PRONE POSITION.
--- NOTE | 2021-07-06 20:00 | NUR ---
PT CURRENTLY IN PRONE POSITION. NOTED COUGHING AT TIMES, ET TUBE SUCTIONED, MODERATED AMOUNT THICK SECRETIONS. PT APPEARS WELL SEDATED, WILL MAINTAIN TOLERATED. ABRASIONS TO CHEEKS CAN SLIDER. 260ML RESIDUAL FROM OG TUBE, TUBE FEEDING HELD FOR NOW. WILL CONTINUE TO MONITOR.
[2021-07-07] VITALS (585 sets, daily range): BP systolic 106–120; BP diastolic 65–77; PULSE 85–95; TEMP 97.9–99.6; O2SAT 92–100
[2021-07-07 03:55] LABS: ARTERIAL BLD GAS O2 SATURATION 94.9 % (92-100); ARTERIAL BLD GAS TCO2 CT 30.4; ARTERIAL BLOOD GAS BASE EXCESS 3.3 (-2-2); ARTERIAL BLOOD GAS HCO3 28.9 meq/L (22-26); ARTERIAL BLOOD GAS PCO2 47.8 mmHg (35-45); ARTERIAL BLOOD GAS PO2 75.5 mmHg (80-100)
[2021-07-07 05:29] LABS: HEMATOCRIT 40.3 % (42.0-52.0); HEMOGLOBIN 13.4 g/dl (13.5-18.0); MEAN CELL VOLUME 94 fl (80.0-100.0); MEAN CORPUSCULAR HEMOGLOBIN 31 pg (27-31); MEAN CORPUSCULAR HGB CONC 33 g/dl (33.0-37.0); MEAN PLATELET VOLUME 10.6 fl (7.4-10.4); PLATELET COUNT 142 K/mm3 (130-400); RED BLOOD COUNT 4.31 M/mm3 (4.20-5.60)
--- NOTE | 2021-07-07 05:32 | NUR ---
SEDATION VACATION NOT DONE DUE TO PRONE POSITION.
--- NOTE | 2021-07-07 05:42 | NUR ---
PT HAS BEEN IN PRONE POSITION ALL SHIFT, TURNING HEAD TO OPPOSITE SIDE FREQUENTLY WITH ASSIST OF RT. PT HAS STRONG COUGH WHEN TURNED, PINK TINGED SECRETIONS NOTED. PT SEDATED WELL, DOES NOT APPEAR TO BE IN DISCOMFORT. NOTED RED AREA TO LUE, FLAT WITH SPLOTCHY BORDER, HAS REMAINED ABOUT THE SAME SINCE INITIAL ASSESSMENT THIS SHIFT. WILL CONTINUE TO MONITOR.
[2021-07-07 05:51] LABS: C-REACTIVE PROTEIN 0.23 mg/dL (0.00-0.50); CREATININE, serum 0.72 mg/dL (0.72-1.25); POTASSIUM 4.1 mmol/L (3.5-4.5)
[2021-07-07 06:30] LABS: BAND 4 % (0-10); LYMPHOCYTE 24 % (20.0-51.0); METAMYELOCYTE 1 % (0-0); NEUTROPHILS 66 % (42.0-75.2)
[2021-07-07 06:31] LABS: PLATELET ESTIMATE NORMAL (NORMAL)
--- NOTE | 2021-07-07 07:32 | NUR ---
SHIFT REPORT RECEIVED FROM IRIS TADEO. PT FREEMAN IN PRONE POSITION. FC TO DEPENDENT DRAINAGE. LEFT SUBCLAVIAN TRIPLE LUMEN IN PLACE; CLEAN, DRY, AND INTACT; SEE GTT FLOW SHEET FOR INFUSIONS AND RATES. OG TUBE 65 AT TEETH; INFUSING TF. 8.0 ETT 25CM AT TEETH WITH CURRENT VENTILATOR SETTINGS; TV 430, RATE 28, AC MODE, PEEP 8, FIO2 50. PT APPEARS TO BE COMPLIANT WITH VENTILATOR AT THIS TIME. BILATERAL WRIST RESTRAINTS IN PLACE. VITAL SIGNS STABLE. PT SEDATED WITH NO S/S DISCOMFORT AT THIS TIME.
--- NOTE | 2021-07-07 09:42 | NUR ---
THIS NURSE SPOKE WITH PT'S JACQUELYN. GAVE JACQUELYN UPDATE OF PT'S CURRENT CONDITION AND LET HER KNOW THAT THERE WERE NO MAJOR EVENTS OVER NIGHT. ALL QUESTIONS WERE ANSWERED AND PLAN OF CARE WAS DISCUSSED. JACQUELYN REQUESTS THAT DR. MCINTYRE CALL HER TODAY AND GIVE HER AN UPDATE WELL. THIS NURSE LET HER KNOW THAT I WOULD PASS THE REQUEST ON TO HIM.
--- NOTE | 2021-07-07 09:46 | NUR ---
PT WAS REPOSITIONED FROM PRONE TO SUPINE WITH ASSISTANCE OF RT AND PHYSICAL THERAPY. PT TOLERATED REPOSITIONING WELL AND VITAL SIGNS REMAINED STABLE. PT DID HAVE PERIODS OF COUGHING WITH MODERATE AMOUNTS OF SPUTUM; SPO2 REMAINED STABLE. PT NOW LIES SUPINE WITH HOB ELEVATED. AUTO ROTATE TURNED ON AT THIS TIME. BILATERAL WRIST RESTRAINS REMAIN IN PLACE. PT WIPED DOWN WITH BATH WIPES AND LINENS CHANGED.
--- NOTE | 2021-07-07 10:52 | NUR ---
DR. MCINTYRE SPEAKING WITH PT'S VIA PHONE AT THIS TIME. DR. MCINTYRE UPDATES HER ON PLAN OF CARE AND ANSWERS ALL QUESTIONS. JACQUELYN VERBALIZES UNDERSTANDING.
--- NOTE | 2021-07-07 17:52 | NUR ---
PT PLACED IN PRONE POSITION WITH ASSISTANCE OF RT; FACE TO RIGHT SIDE. PT TOLERATED REPOSITIONING WELL AND HAD NO SIGNIFICANT CHANGES IN VITAL SIGNS. ALL LINES AND TUBES SECURED AND IN PLACE. BILATERAL WRIST RESTRAINTS IN PLACE. VITAL SIGNS STABLE. LINES CHANGED AND PT WIPED DOWN WITH BATH WIPES.
--- NOTE | 2021-07-07 17:56 | NUR ---
NOT APPROPRIATE FOR PT AT THIS TIME DUE TO BEING IN PRONE POSITION.
[2021-07-08] VITALS: BP 122/82; PULSE 94; TEMP 99.7
[2021-07-08 04:00] VITALS: BP 115/66; PULSE 70; TEMP 99.2
[2021-07-08 04:55] LABS: ARTERIAL BLD GAS O2 SATURATION 92.1 % (92-100); ARTERIAL BLD GAS TCO2 CT 30.6; ARTERIAL BLOOD GAS PCO2 50.1 mmHg (35-45); ARTERIAL BLOOD GAS PO2 63.7 mmHg (80-100); ARTERIAL BLOOD GAS pH 7.38 (7.35-7.45)
[2021-07-08 05:26] LABS: HEMATOCRIT 39.1 % (42.0-52.0); MEAN CELL VOLUME 95 fl (80.0-100.0); MEAN CORPUSCULAR HEMOGLOBIN 32 pg (27-31); MEAN CORPUSCULAR HGB CONC 33 g/dl (33.0-37.0); MEAN PLATELET VOLUME 10.8 fl (7.4-10.4); PLATELET COUNT 128 K/mm3 (130-400); RED BLOOD COUNT 4.13 M/mm3 (4.20-5.60); REDCELL DISTRIBUTION WIDTH-CV 13.2 % (11.5-14.5)
[2021-07-08 05:40] LABS: ALBUMIN 3.5 gm/dL (3.5-5.0); BILIRUBIN,TOTAL 0.9 mg/dL (0.2-1.2); C-REACTIVE PROTEIN 0.14 mg/dL (0.00-0.50); CALCIUM 8.8 mg/dL (8.4-10.2); CREATININE, serum 0.7 mg/dL (0.72-1.25); MAGNESIUM 2.3 mg/dL (1.6-2.6); PHOSPHOROUS 3.7 mg/dL (2.3-4.7); POTASSIUM 3.8 mmol/L (3.5-4.5); TOTAL PROTEIN 6.1 gm/dL (6.2-8.1)
--- NOTE | 2021-07-08 05:53 | NUR ---
SEDATION VACATION NOT DONE DUE TO PT IN PRONE POSITION.
--- NOTE | 2021-07-08 05:57 | NUR ---
UNEVENTFUL NIGHT. PT TOLERATED VENT AND PRONING WELL. LOW GRADE FEVERS. GOOD URINE OUTPUT.
[2021-07-08 06:23] LABS: BAND 3 % (0-10); LYMPHOCYTE 17 % (20.0-51.0); METAMYELOCYTE 2 % (0-0); NEUTROPHILS 73 % (42.0-75.2); PLATELET ESTIMATE DECREASED (NORMAL)
--- NOTE | 2021-07-08 07:00 | NUR ---
PT IS INTUBATED, SEDATED, AND PRONED. VSS. WILL CONTINUE TO MONITOR.
[2021-07-08 08:00] VITALS: BP 113/69; PULSE 91; TEMP 99
[2021-07-08 11:54] VITALS: BP 117/79; PULSE 90; TEMP 98.2
[2021-07-08 16:00] VITALS: BP 106/61; PULSE 92; TEMP 99
--- NOTE | 2021-07-08 19:00 | NUR ---
Received report from IRIS Womack.
[2021-07-08 20:00] VITALS: BP 112/67; PULSE 90; TEMP 99.4
--- NOTE | 2021-07-08 20:45 | NUR ---
Patient in prone position; remains on ventilator. Resting quietly in bed. Continues to receive versed and fentanyl drips. All vitals within normal limits.
[2021-07-09] VITALS (572 sets, daily range): BP systolic 103–126; BP diastolic 63–91; PULSE 89–105; TEMP 99–100.1; O2SAT 84–100
[2021-07-09 04:18] LABS: ARTERIAL BLD GAS O2 SATURATION 97.1 % (92-100); ARTERIAL BLD GAS TCO2 CT 25.6; ARTERIAL BLOOD GAS BASE EXCESS -0.2 (-2-2); ARTERIAL BLOOD GAS HCO3 24.4 meq/L (22-26); ARTERIAL BLOOD GAS PCO2 39.4 mmHg (35-45); ARTERIAL BLOOD GAS PO2 91.5 mmHg (80-100); ARTERIAL BLOOD GAS pH 7.41 (7.35-7.45)
--- NOTE | 2021-07-09 05:32 | NUR ---
PATIENT PRONE, NO SEDATION VACATION
[2021-07-09 05:41] LABS: HEMATOCRIT 37.5 % (42.0-52.0); HEMOGLOBIN 12.7 g/dl (13.5-18.0); MEAN CELL VOLUME 95 fl (80.0-100.0); MEAN CORPUSCULAR HEMOGLOBIN 32 pg (27-31); MEAN CORPUSCULAR HGB CONC 34 g/dl (33.0-37.0); MEAN PLATELET VOLUME 11.5 fl (7.4-10.4); PLATELET COUNT 123 K/mm3 (130-400); RED BLOOD COUNT 3.97 M/mm3 (4.20-5.60); REDCELL DISTRIBUTION WIDTH-CV 13.3 % (11.5-14.5)
[2021-07-09 05:49] LABS: CREATININE, serum 0.66 mg/dL (0.72-1.25); POTASSIUM 3.7 mmol/L (3.5-4.5)
[2021-07-09 06:13] LABS: BAND 2 % (0-10); LYMPHOCYTE 22 % (20.0-51.0); NEUTROPHILS 71 % (42.0-75.2); PLATELET ESTIMATE NORMAL (NORMAL)
--- NOTE | 2021-07-09 07:00 | NUR ---
PT IS INTUBATED, SEDATED, AND PRONED. VSS. WILL CONTINUE TO MONTIOR.
--- NOTE | 2021-07-09 14:10 | NUR ---
Factory Engineer contacted patient's about FMLA paperwork she left for patient. KUMAR advised Latricia that FMLA paperwork would need to be completed by patient's primary care physician and Latricia verbalized understanding. KUMAR contacted Dr. Browning's office and faxed FMLA paperwork to be completed.
--- NOTE | 2021-07-09 16:39 | NUR ---
NO SEDATION VACATION AT THIS TIME D/T PT BEING PRONED. PT OPENS EYES AND MOVES ALL EXTREMETIES. WILL CONTINUE TO MONTIOR.
--- NOTE | 2021-07-09 19:30 | NUR ---
Received report from IRIS Womack.
[2021-07-10] VITALS (654 sets, daily range): BP systolic 99–134; BP diastolic 67–79; PULSE 76–101; TEMP 98.2–99.4; O2SAT 87–100
[2021-07-10 03:48] LABS: ARTERIAL BLD GAS O2 SATURATION 94.8 % (92-100); ARTERIAL BLD GAS TCO2 CT 27.5; ARTERIAL BLOOD GAS BASE EXCESS 1.8 (-2-2); ARTERIAL BLOOD GAS HCO3 26.2 meq/L (22-26); ARTERIAL BLOOD GAS PCO2 40.6 mmHg (35-45); ARTERIAL BLOOD GAS PO2 73.7 mmHg (80-100); ARTERIAL BLOOD GAS pH 7.43 (7.35-7.45)
[2021-07-10 05:00] LABS: HEMATOCRIT 37.5 % (42.0-52.0); HEMOGLOBIN 12.4 g/dl (13.5-18.0); MEAN CELL VOLUME 95 fl (80.0-100.0); MEAN CORPUSCULAR HEMOGLOBIN 32 pg (27-31); MEAN CORPUSCULAR HGB CONC 33 g/dl (33.0-37.0); MEAN PLATELET VOLUME 11.2 fl (7.4-10.4); PLATELET COUNT 108 K/mm3 (130-400); RED BLOOD COUNT 3.94 M/mm3 (4.20-5.60); REDCELL DISTRIBUTION WIDTH-CV 13.7 % (11.5-14.5)
--- NOTE | 2021-07-10 05:03 | NUR ---
PATIENT PRONE, NO SEDATION VACATION PERFORMED
[2021-07-10 05:06] LABS: CALCIUM 8.9 mg/dL (8.4-10.2); CREATININE, serum 0.64 mg/dL (0.72-1.25); POTASSIUM 3.6 mmol/L (3.5-4.5)
--- NOTE | 2021-07-10 05:21 | NUR ---
patient does not meet weaning requirements
[2021-07-10 05:45] LABS: BAND 4 % (0-10); LYMPHOCYTE 17 % (20.0-51.0); NEUTROPHILS 74 % (42.0-75.2); PLATELET ESTIMATE DECREASED (NORMAL)
--- NOTE | 2021-07-10 07:15 | NUR ---
RECEIVED REPORT FROM IRIS CARRION. PT RESTING IN PRONED POSITION. VENT SETTINGS: AC, TV 430, PEEP 8, RR 25, FIO2 40%. OGT WITH TF INFUSING AT 55 ML/HR. FC PATENT AND DRAINING TO GRAVITY. VSS. HI LOW TRUCK DRIVER IN PLACE. SEE GTT FLOWSHEET.
--- NOTE | 2021-07-10 09:25 | NUR ---
PT UNPRONED AT THIS TIME. TOLERATED WELL. VSS.
--- NOTE | 2021-07-10 17:00 | NUR ---
PT AROUSES TO VERBAL STIMULI EASILY. DOES NOT APPEAR TO FOLLOW COMMANDS BUT DOES BLINK AND AROUSES EASILY TO NOISES. PT DOES COUGH AGAINST VENT BUT ENCOURAGED TO RELAX, AND VENT STOPS HONKING.
[2021-07-11] VITALS (681 sets, daily range): BP systolic 117–135; BP diastolic 66–96; PULSE 80–104; TEMP 98–100.4; O2SAT 84–100
--- NOTE | 2021-07-11 05:00 | NUR ---
SEDATION VACATION INITIATED WITH DECREASE OF VERSED TO 5MG/HR AND FENTANYL TO 100 MCG/HR. REINFORCED TO PATIENT ABOUT SEDATION BEING DECREASED AND THAT HE SHOULD TRY TO REMAIN CALM, PATIENT NODDED HEAD IN UNDERSTANDING AT THIS TIME WILL MONITOR AND ENCOURAGE PATIENT TO REMAIN CALM
[2021-07-11 05:08] LABS: ARTERIAL BLD GAS O2 SATURATION 96.1 % (92-100); ARTERIAL BLD GAS TCO2 CT 26.9; ARTERIAL BLOOD GAS BASE EXCESS 1.8 (-2-2); ARTERIAL BLOOD GAS HCO3 25.7 meq/L (22-26); ARTERIAL BLOOD GAS PCO2 37.8 mmHg (35-45); ARTERIAL BLOOD GAS PO2 81.3 mmHg (80-100); ARTERIAL BLOOD GAS pH 7.45 (7.35-7.45)
[2021-07-11 05:35] LABS: BASO % 0.2 % (0.0-2.0); EOS # 0.1 K/mm3 (0.0-0.7); EOS % 0.8 % (0.0-4.0); GRAN # 4.1 K/mm3 (1.4-6.5); GRAN % 65.3 % (42.2-75.2); HEMOGLOBIN 12.1 g/dl (13.5-18.0); LYMPH # 1.3 K/mm3 (1.2-3.4); LYMPH % 21.1 % (20.0-51.0); MEAN CELL VOLUME 95 fl (80.0-100.0); MEAN CORPUSCULAR HEMOGLOBIN 31 pg (27-31); MEAN CORPUSCULAR HGB CONC 33 g/dl (33.0-37.0); MEAN PLATELET VOLUME 11.4 fl (7.4-10.4); MONO # 0.7 K/mm3 (0.1-0.6); MONO % 11.3 % (1.7-9.3); PLATELET COUNT 118 K/mm3 (130-400); RED BLOOD COUNT 3.85 M/mm3 (4.20-5.60); REDCELL DISTRIBUTION WIDTH-CV 14.2 % (11.5-14.5)
[2021-07-11 05:39] LABS: HEMATOCRIT 36.6 % (42.0-52.0)
[2021-07-11 05:52] LABS: CALCIUM 8.6 mg/dL (8.4-10.2); CREATININE, serum 0.63 mg/dL (0.72-1.25); POTASSIUM 3.5 mmol/L (3.5-4.5)
--- NOTE | 2021-07-11 07:10 | NUR ---
RECEIVED REPORT FROM IRIS SMART. NO CHANGES ON VENT SETTINGS. VSS. OGT WITH TF INFUSING AT 55 ML/HR. MANAGER ELECTRONIC IN PLACE. FC PATENT AND DRAINING TO GRAVITY. SEE GTT FLOWSHEET.
--- NOTE | 2021-07-11 09:20 | NUR ---
PT'S HR 150s. DR MCINTYRE STATES IT IS OK TO PUT PT BACK UNDER, SEE GTT FLOWSHEET.
--- NOTE | 2021-07-11 14:30 | NUR ---
PT SWITCHED BACK TO AC MODE ON VENT. PT TOLERATED SPONTANEOUS TRIAL WITH SEDATION ON FOR ALMOST 6 HOURS. HR EVENTUALLY HIT 150 AND WAS UNABLE TO CALM DOWN. SEE GTT FLOWSHEET.
[2021-07-12] VITALS (733 sets, daily range): BP systolic 102–165; BP diastolic 64–98; PULSE 80–140; TEMP 98.5–101.1; O2SAT 78–98
[2021-07-12 04:27] LABS: ARTERIAL BLD GAS O2 SATURATION 97.2 % (92-100); ARTERIAL BLD GAS TCO2 CT 31.5; ARTERIAL BLOOD GAS BASE EXCESS 5.5 (-2-2); ARTERIAL BLOOD GAS HCO3 30.2 meq/L (22-26); ARTERIAL BLOOD GAS PCO2 44.1 mmHg (35-45); ARTERIAL BLOOD GAS PO2 89.9 mmHg (80-100); ARTERIAL BLOOD GAS pH 7.45 (7.35-7.45)
[2021-07-12 04:58] LABS: BASO % 0.1 % (0.0-2.0); EOS % 0.4 % (0.0-4.0); GRAN # 4.6 K/mm3 (1.4-6.5); GRAN % 67.5 % (42.2-75.2); HEMATOCRIT 40.1 % (42.0-52.0); HEMOGLOBIN 13.1 g/dl (13.5-18.0); LYMPH # 1.3 K/mm3 (1.2-3.4); LYMPH % 18.5 % (20.0-51.0); MEAN CELL VOLUME 96 fl (80.0-100.0); MEAN CORPUSCULAR HEMOGLOBIN 32 pg (27-31); MEAN CORPUSCULAR HGB CONC 33 g/dl (33.0-37.0); MEAN PLATELET VOLUME 11.2 fl (7.4-10.4); MONO # 0.9 K/mm3 (0.1-0.6); MONO % 12.6 % (1.7-9.3); PLATELET COUNT 125 K/mm3 (130-400); RED BLOOD COUNT 4.16 M/mm3 (4.20-5.60); REDCELL DISTRIBUTION WIDTH-CV 14.3 % (11.5-14.5)
[2021-07-12 05:13] LABS: CALCIUM 9.4 mg/dL (8.4-10.2); CREATININE, serum 0.65 mg/dL (0.72-1.25)
--- NOTE | 2021-07-12 05:28 | NUR ---
UNEVENTFUL NIGHT. INTUBATED AND SEDATED, TOLERATING VENT. PT OPENS EYES SPONTANEOUSLY AND FOLLOWS COMMANDS. WITH CARES, PT DOES GET TACHYCARDIC UP TO THE 140'S BUT DOES NOT SUSTAIN. VERMA PATENT AND DRAINING WITH GOOD OUTPUT. TOLERATING TUBE FEED WITH MINIMAL RESIDUALS.
--- NOTE | 2021-07-12 07:00 | NUR ---
PT IS INTUBATED AND ON LIGHT SEDATION. PT OPENS EYES TO VOICE AND FOLLOWS COMMANDS. CALLED RT FOR VENT WEANING TRIAL. WILL CONTINUE TO MONITOR.
--- NOTE | 2021-07-12 10:31 | NUR ---
0845 SEDATION STOPPED BY . PT WAS ABLE TO FOLLOW COMMANDS AND MOVE ALL EXTREMETIES PRIOR TO SEDATION BEING STOPPED. PT PLACED ON VENT WEAING TRIAL. 1000-PT BECAME RESTLESS AND TACHYCARDIC UP TO THE 150'S. NOTIFIED. SEDATION RESTARTED. 1010- PT PLACED BACK ON AC MODE. WILL CONTINUE TO MONITOR.
--- NOTE | 2021-07-12 12:38 | NUR ---
SPOKE WITH REGARDING PT BEING TACHYCARDIAC AND RESTLESS. AGREED WITH STARTING PRECEDEX. WILL CONTINUE TO TITRATE SEDATION. IF UNABLE TO SEDATE PT WILL DRAW A TRIGLYCERIDE LEVEL AND IF NORMAL SWITCH PT FROM VERSED TO PROPOFOL.
--- NOTE | 2021-07-12 14:29 | NUR ---
SPOKE WITH REGARDING PT'S HOME PROPANOLOL AND PT HAVING INTERMITTENT TACHYCARDIA. STATES HE WILL RESTART.
--- NOTE | 2021-07-12 17:19 | NUR ---
SEDATION VACATION DONE EARLIER TODAY. WILL CONITNUE TO DENISE.
[2021-07-13] VITALS (742 sets, daily range): BP systolic 102–137; BP diastolic 66–96; PULSE 82–150; TEMP 97–101.9; O2SAT 76–100
[2021-07-13 03:01] LABS: ARTERIAL BLD GAS O2 SATURATION 95.1 % (92-100); ARTERIAL BLD GAS TCO2 CT 28.4; ARTERIAL BLOOD GAS BASE EXCESS 1.9 (-2-2); ARTERIAL BLOOD GAS HCO3 27.1 meq/L (22-26); ARTERIAL BLOOD GAS PO2 74.6 mmHg (80-100); ARTERIAL BLOOD GAS pH 7.41 (7.35-7.45)
[2021-07-13 04:37] LABS: BASO % 0.1 % (0.0-2.0); EOS # 0.1 K/mm3 (0.0-0.7); EOS % 0.7 % (0.0-4.0); GRAN # 5.4 K/mm3 (1.4-6.5); GRAN % 74.8 % (42.2-75.2); HEMOGLOBIN 12.3 g/dl (13.5-18.0); LYMPH # 1.1 K/mm3 (1.2-3.4); LYMPH % 14.7 % (20.0-51.0); MEAN CELL VOLUME 97 fl (80.0-100.0); MEAN CORPUSCULAR HEMOGLOBIN 31 pg (27-31); MEAN CORPUSCULAR HGB CONC 32 g/dl (33.0-37.0); MEAN PLATELET VOLUME 10.9 fl (7.4-10.4); MONO # 0.6 K/mm3 (0.1-0.6); MONO % 8.9 % (1.7-9.3); PLATELET COUNT 117 K/mm3 (130-400); RED BLOOD COUNT 3.92 M/mm3 (4.20-5.60); REDCELL DISTRIBUTION WIDTH-CV 14.1 % (11.5-14.5)
[2021-07-13 04:51] LABS: CALCIUM 9.2 mg/dL (8.4-10.2); CREATININE, serum 0.67 mg/dL (0.72-1.25); POTASSIUM 3.7 mmol/L (3.5-4.5)
--- NOTE | 2021-07-13 05:52 | NUR ---
PT INTUBATED AND SEDATED. TOLERATING VENT. SEDATION DECREASED WITH SEDATION VACATION. PT FOLLOWS COMMANDS, OPENS EYES SPONTANEOUSLY. HR DID INCREASE TO 90-110 WITH SEDATION DECREASE. URINE OUTPUT DEDCREASING THROUGHOUT SHIFT. NOTIFIED JORGE ALLEN, BOLUS GIVEN AND MAINTENANCE FLUIDS STARTED DOCUMENTED IN AUG. PT DID HAVE FEVER OF 101.1 AND PRN TYLENOL GIVEN. FEVER RESOLVED. PT CURRENTLY RESTING WITH EYES CLOSED.
--- NOTE | 2021-07-13 07:00 | NUR ---
Pt on lower sedation and intubated. Pt opens eyes to voice, answers yes/no questions, and follows commands. VSS. Will continue to monitor.
--- NOTE | 2021-07-13 12:23 | NUR ---
PT'S SEDATION DECREASED FOR SEDATION VACATION AND WEANING TRIAL. SEDATION STOPPED EXCEPT PRECEDEX AT 1000 PER . PT STARTED ON WEANING TRIAL AT 0915. PT BECAME TACHYCARDIAC AND RESTLESS. PRECEDEX INCREASED. WHEN ATTEMPTING TO GET BLOOD GAS AT 1210 PT BECAME VERY AGITATED ATTEMPTING TO PULL OUT ET TUBE AND LINES. HR UP TO 150'S. BEDSIDE. SEDATION RESTARTED AND PT PLACED BACK ON ASSIST CONTROL MODE. WILL UPDATE .
[2021-07-13 12:24] LABS: ARTERIAL BLD GAS O2 SATURATION 97.6 % (92-100); ARTERIAL BLD GAS TCO2 CT 24.5; ARTERIAL BLOOD GAS BASE EXCESS -0.8 (-2-2); ARTERIAL BLOOD GAS HCO3 23.4 meq/L (22-26); ARTERIAL BLOOD GAS PCO2 37.3 mmHg (35-45); ARTERIAL BLOOD GAS PO2 97.1 mmHg (80-100); ARTERIAL BLOOD GAS pH 7.42 (7.35-7.45)
--- NOTE | 2021-07-13 17:00 | NUR ---
NO SEDATION VACATION AT THIS TIME. PREVIOUS SEDATION VACATION. SEE NOTE. NOTIFIED OF NEED FOR HIGH PRECEDEX RATE. PT OPENS EYES TO VOICE AND MOVES ALL EXTREMETIES. WILL CONTINUE TO MONTIOR.
--- NOTE | 2021-07-13 17:41 | NUR ---
BRANDYN KNIGHT CALLED THIS RN TO NOTIFY THAT PT'S ARIXTRA WAS NOT DELIVERED TODAY THEREFORE WE DO NOT HAVE PT'S EVENING DOES. WILL HOPEFULLY RECEIVED DELIVERY TOMORROW. WILL ENDORSE TO NIGHT RN.
[2021-07-14] VITALS (699 sets, daily range): BP systolic 100–135; BP diastolic 71–96; PULSE 76–115; TEMP 97.2–100.7; O2SAT 88–100
[2021-07-14 04:45] LABS: ARTERIAL BLD GAS O2 SATURATION 96.2 % (92-100); ARTERIAL BLD GAS TCO2 CT 28.3; ARTERIAL BLOOD GAS HCO3 27.1 meq/L (22-26); ARTERIAL BLOOD GAS PCO2 39.8 mmHg (35-45); ARTERIAL BLOOD GAS PO2 82.6 mmHg (80-100); ARTERIAL BLOOD GAS pH 7.45 (7.35-7.45)
[2021-07-14 04:45] LABS: BASO % 0.2 % (0.0-2.0); EOS # 0.1 K/mm3 (0.0-0.7); GRAN # 6.3 K/mm3 (1.4-6.5); GRAN % 72.2 % (42.2-75.2); HEMATOCRIT 37.1 % (42.0-52.0); HEMOGLOBIN 12.1 g/dl (13.5-18.0); LYMPH # 1.2 K/mm3 (1.2-3.4); LYMPH % 14.1 % (20.0-51.0); MEAN CELL VOLUME 96 fl (80.0-100.0); MEAN CORPUSCULAR HEMOGLOBIN 31 pg (27-31); MEAN CORPUSCULAR HGB CONC 33 g/dl (33.0-37.0); MEAN PLATELET VOLUME 10.9 fl (7.4-10.4); MONO % 11.9 % (1.7-9.3); PLATELET COUNT 126 K/mm3 (130-400); RED BLOOD COUNT 3.85 M/mm3 (4.20-5.60); REDCELL DISTRIBUTION WIDTH-CV 14.2 % (11.5-14.5)
[2021-07-14 04:56] LABS: CALCIUM 9.3 mg/dL (8.4-10.2); CREATININE, serum 0.63 mg/dL (0.72-1.25)
--- NOTE | 2021-07-14 05:16 | NUR ---
SEDATION VACATION NOT DONE AT THIS TIME. DR MCINTYRE WANTS TO BE IN UNIT PRIOR TO DECREASING SEDATION. PT DOES OPEN EYES AND FOLLOW COMMANDS AT CURRENT LEVEL OF SEDATION.
--- NOTE | 2021-07-14 15:08 | NUR ---
1030- PT SEDATAION SHUT OFF FOR weaning trial per Dr. Dempsey. Patient was ablet o follow commands, track with eyes and answer yes/no question.s 1210- PT to remain intubted, patient sedation resumed.
[2021-07-15] VITALS (663 sets, daily range): BP systolic 109–136; BP diastolic 90–101; PULSE 80–125; TEMP 97.7–101.3; O2SAT 88–99
[2021-07-15 04:00] LABS: ARTERIAL BLD GAS TCO2 CT 25.9; ARTERIAL BLOOD GAS BASE EXCESS 0.7 (-2-2); ARTERIAL BLOOD GAS HCO3 24.8 meq/L (22-26); ARTERIAL BLOOD GAS PCO2 37.4 mmHg (35-45); ARTERIAL BLOOD GAS PO2 74.3 mmHg (80-100); ARTERIAL BLOOD GAS pH 7.44 (7.35-7.45)
[2021-07-15 05:01] LABS: ALBUMIN 3.2 gm/dL (3.5-5.0); BILIRUBIN,TOTAL 1.3 mg/dL (0.2-1.2); CALCIUM 9.3 mg/dL (8.4-10.2); CREATININE, serum 0.72 mg/dL (0.72-1.25); MAGNESIUM 2.1 mg/dL (1.6-2.6); PHOSPHOROUS 4.4 mg/dL (2.3-4.7); POTASSIUM 3.8 mmol/L (3.5-4.5); TOTAL PROTEIN 6.4 gm/dL (6.2-8.1)
--- NOTE | 2021-07-15 05:06 | NUR ---
SEDATION VACATION TO BE DONE WHEN DR MCINTYRE IN UNIT. ON CURRENT SEDATION, PT AWAKE, FOLLOWS COMMANDS, AND MOVES ALL EXTREMITIES.
--- NOTE | 2021-07-15 05:45 | NUR ---
PT INTUBATED AND SEDATED. PT CONTINUES TO OPEN EYES, FOLLOW COMMANDS, AND MOVE ALL EXTREMITIES ON CURRENT SEDATION. PT DOES GET AGITATED AND NODS YES WHEN ASKED IF UNCOMFORTABLE. PT THEN REPOSITIONED, AND WILL CLOSE EYES AND REST. WHEN RESTLESS, HR INCREASES TO 110-130. URINE OUTPUT MARGINAL. DID HAVE SMALL BM.
--- NOTE | 2021-07-15 07:10 | NUR ---
RECEIVED REPORT FROM IRIS TADEO. PT RESTING ON VENT SETTINGS: TV 430, PEEP 6, RR 25, 40%. OGT WITH TF INFUSING AT 55 ML/HR. FC PATENT AND DRAINING TO GRAVITY. VSS. AUTO DEALER IN PLACE. SEE GTT FLOWSHEET.
--- NOTE | 2021-07-15 08:40 | NUR ---
PT WAS STARTED ON SPONTANEOUS TRIAL BY RT AT 0825. SEDATION ON HOLD AT [address] MCINTYRE BUT REQUESTS THAT RN WATCH RR AND HR CLOSELY AND SEE HOW PT TOLERATES.
--- NOTE | 2021-07-15 08:58 | NUR ---
PT NODDING HEAD WHEN ASKED IF HE IS HAVING A HARD TIME BREATHING. RR IN THE MID 40s, HR 120s AND APPEARS TO BE STRUGGLING TO BREATHE. PT PLACED BACK ON AC MODE ON VENT AND SEDATION RESTARTED. DR MCINTYRE MADE AWARE, CT CHEST REQUESTED AFTER PICC LINE PLACEMENT COMPLETED.
--- NOTE | 2021-07-15 10:00 | NUR ---
Dr. Dempsey has scheduled a meeting with the patient's , Latricia, tomorrow at 0900 to update and address plan of care. SW to continue to follow.
--- NOTE | 2021-07-15 11:00 | NUR ---
TO CT AT 1022, BACK AT 1038. DISCUSSED CT SCAN WITH DR MCINTYRE. DR MCINTYRE REQUESTS RN TO CALL PT'S ONCE OFFICAL RESULTS ARE BACK FROM RADIOLOGIST AND DISCUSS TRACH AND PEG MORE AND ABOUT HER VISITING TOMORROW WITH HIM.
--- NOTE | 2021-07-15 13:24 | NUR ---
SPOKE WITH PT'S ABOUT POC, CT RESULTS, AND FAMILY MEETING TALK WITH DR MCINTYRE TOMORROW. EXPLAINED TO PT'S THAT PT IS STILL CONTAMINATED AND WE HAVE TO MINIMIZE AMOUNT OF EXPOSURES AT THIS TIME TILL MORE DECISIONS ARE MADE ABOUT POC.
--- NOTE | 2021-07-15 13:30 | NUR ---
Contacted by ICU nurse. unable to flush red port. catheter kinked under dressing. PICC sterile dressing change done. catheter unkinked and now insertion site is 8 cm. RN informed.
[2021-07-15 14:43] LABS: COLLECTION METHOD CLEAN CATCH
[2021-07-15 14:53] LABS: MUCOUS Present (NOT PRESENT); PH 6 (5-8); SQUAMOUS EPITHELIAL None Seen /hpf (0-10); URINE APPEARANCE Hazy (CLEAR/HAZY); URINE BACTERIA Rare /hpf (NONE SEEN); URINE BILIRUBIN Negative (NEGATIVE); URINE BLOOD 1+ (NEGATIVE); URINE COLOR Yellow (YELLOW); URINE GLUCOSE Negative (NEGATIVE); URINE KETONE Negative (NEGATIVE); URINE LEUKOCYTE ESTERASE Negative (NEGATIVE); URINE NITRATE Negative (NEGATIVE); URINE PROTEIN(semi-quant) Negative (NEGATIVE); URINE RBC >50 /hpf (0-2)
--- NOTE | 2021-07-15 17:50 | NUR ---
PT ABLE TO WIGGLE TOES AND MOVE ARMS UPON REQUEST. HR REMAINS BETWEEN 100-120. ALL OTHER VSS. PT ABLE TO FALL BACK TO SLEEP AFTER DECREASE IN STIMULI.
--- NOTE | 2021-07-15 17:52 | NUR ---
LT SUBCLAVIAN CENTRAL LINE DCd AT THIS TIME. TIP INTACT. PT TOELRATED WELL. PETER PRESSURE HELD FOR TEN MINS. MINIMAL BLEEDING NOTED AT THIS TIME. WILL MONITOR CLOSELY.
[2021-07-16] VITALS (426 sets, daily range): BP systolic 94–133; BP diastolic 69–87; PULSE 98–111; TEMP 97.5–102.3; O2SAT 91–99
[2021-07-16 04:46] LABS: ARTERIAL BLD GAS O2 SATURATION 96.9 % (92-100); ARTERIAL BLD GAS TCO2 CT 20.4; ARTERIAL BLOOD GAS BASE EXCESS -4.8 (-2-2); ARTERIAL BLOOD GAS HCO3 19.4 meq/L (22-26); ARTERIAL BLOOD GAS PCO2 34.6 mmHg (35-45); ARTERIAL BLOOD GAS PO2 96.4 mmHg (80-100); ARTERIAL BLOOD GAS pH 7.37 (7.35-7.45)
[2021-07-16 05:07] LABS: CALCIUM 9.1 mg/dL (8.4-10.2); CREATININE, serum 0.83 mg/dL (0.72-1.25); POTASSIUM 4.2 mmol/L (3.5-4.5)
--- NOTE | 2021-07-16 05:33 | NUR ---
40 yo male being treated for CAVP secondary to Covid19 and now with concerns for sepsis. ht 73 inches wt 129.6 kg (adj wt 99.8 kg) SCr 0.83 with estimated CrCl >60 ml/min Plan: Patient is unlikely to follow population based kinetics secondary to body habitus (BMI ~37 kg/m2). Will give an initial loading dose of vancomycin 2500 mg x1 (19.3 mg/kg); followed by a maintenance regimen of vancomycin 1250 mg q8h to target a goal trough of 15-20 mcg/ml. Will follow patient's renal function, micro data, and vancomycin levels as indicated to assess for any necessary changes to regimen. Thank you for this dosing consult.
--- NOTE | 2021-07-16 05:55 | NUR ---
TOLERATING VENT. OPENS EYES SPONTANEOUSLY, FOLLOS COMMANDS, AND MOVES ALL EXTREMITIES ON CURRENT SEDATION. VERMA PATENT AND DRAINING, ADEQUATE OUTPUT. NO BM, DID GIVEN SUPPOSITORY DOCUMENTED IN MAR.
[2021-07-16 06:23] LABS: BASO % 0.2 % (0.0-2.0); EOS # 0.1 K/mm3 (0.0-0.7); EOS % 0.7 % (0.0-4.0); GRAN # 8.4 K/mm3 (1.4-6.5); HEMATOCRIT 39.5 % (42.0-52.0); HEMOGLOBIN 12.8 g/dl (13.5-18.0); LYMPH # 0.9 K/mm3 (1.2-3.4); LYMPH % 8.3 % (20.0-51.0); MEAN CELL VOLUME 99 fl (80.0-100.0); MEAN CORPUSCULAR HEMOGLOBIN 32 pg (27-31); MEAN CORPUSCULAR HGB CONC 32 g/dl (33.0-37.0); MEAN PLATELET VOLUME 11.5 fl (7.4-10.4); MONO # 1.2 K/mm3 (0.1-0.6); PLATELET COUNT 158 K/mm3 (130-400); RED BLOOD COUNT 3.98 M/mm3 (4.20-5.60); REDCELL DISTRIBUTION WIDTH-CV 14.7 % (11.5-14.5)
--- NOTE | 2021-07-16 13:24 | NUR ---
deli worker contacted patient's spouse and advised that Dr Browning's office will not complete spouse's FMLA paperwork. Worker contacted Lovely with Dr Calixto's office (spouse's PCP) and advised of paperwork to complete and faxed documents. Spouse will also contact Dr Calixto's nurse and request documents be completed.
--- NOTE | 2021-07-16 17:59 | NUR ---
PATIENT SEDATION NOT LOWERED DUE TO PATIENT AWAKE AND AGITATED AT TIMES ON CURRENT SETTINGS.
[2021-07-17] VITALS (740 sets, daily range): BP systolic 111–138; BP diastolic 79–94; PULSE 87–111; TEMP 98.9–101.3; O2SAT 91–100
[2021-07-17 04:51] LABS: ARTERIAL BLD GAS O2 SATURATION 98.1 % (92-100); ARTERIAL BLD GAS TCO2 CT 26.8; ARTERIAL BLOOD GAS BASE EXCESS 2.1 (-2-2); ARTERIAL BLOOD GAS HCO3 25.7 meq/L (22-26); ARTERIAL BLOOD GAS PCO2 36.8 mmHg (35-45); ARTERIAL BLOOD GAS PO2 100.4 mmHg (80-100); ARTERIAL BLOOD GAS pH 7.46 (7.35-7.45)
[2021-07-17 05:00] LABS: BASO % 0.2 % (0.0-2.0); EOS # 0.1 K/mm3 (0.0-0.7); EOS % 0.8 % (0.0-4.0); GRAN # 7.5 K/mm3 (1.4-6.5); GRAN % 74.8 % (42.2-75.2); HEMATOCRIT 37.7 % (42.0-52.0); HEMOGLOBIN 12.1 g/dl (13.5-18.0); LYMPH % 9.4 % (20.0-51.0); MEAN CELL VOLUME 99 fl (80.0-100.0); MEAN CORPUSCULAR HEMOGLOBIN 32 pg (27-31); MEAN CORPUSCULAR HGB CONC 32 g/dl (33.0-37.0); MEAN PLATELET VOLUME 11.1 fl (7.4-10.4); MONO # 1.4 K/mm3 (0.1-0.6); MONO % 13.8 % (1.7-9.3); PLATELET COUNT 171 K/mm3 (130-400); REDCELL DISTRIBUTION WIDTH-CV 14.8 % (11.5-14.5)
[2021-07-17 05:14] LABS: CALCIUM 9.3 mg/dL (8.4-10.2); CREATININE, serum 0.76 mg/dL (0.72-1.25); POTASSIUM 3.7 mmol/L (3.5-4.5)
--- NOTE | 2021-07-17 06:23 | NUR ---
UNEVENTFUL NIGHT. PT TOLERATING VENT. FOLLOWS COMMANDS, MOVES EXTREMITIES ON CURRENT SEDATION. PRN TYLENOL GIVEN X2 FOR FEVER. 98.9 ON RECHECK THIS AM. VERMA PATENT AND DRAINING WITH ADEQUATE OUTPUT.
--- NOTE | 2021-07-17 10:12 | NUR ---
REPORT RECEIVED FROM IRIS TADEO. BILATERAL WRIST RESTRAINTS IN PLACE. FC TO DEPENDENT DRAINAGE. LEFT ARM PICC IN PLACE WITH MEDICATIONS INFSUING; SEE GTT FLOW SHEET FOR MEDS AND RATES. 8.[address] WITH CURRENT VENTILATOR SETTINGS; AC MODEM, TV 430, PEEP 6, FIO2 40%, RATE 25. PT TOLERATING VENTILATION. OG 75 CM AT TEETH WITH TUBE FEEDS ON HOLD AT THIS TIME. PLAN FOR BRONCHOSCOPY AND VENOUS DUPLEX OF RIGHT ARM THIS AM. VSS.
--- NOTE | 2021-07-17 13:32 | NUR ---
Vancomycin Follow-up Pharmacy Note Current regimen: Vancomycin 1.25 gm IV q8h Vancomycin trough: 9.34 Adjustments: Increase Vancomycin to 1.5 gm IV q8h. Pharmacy will continue to closely monitor and check a Vancomycin trough on 07/18/21.
--- NOTE | 2021-07-17 14:00 | NUR ---
PT TAKEN TO CT WITH ASSISTANCE OF RT. PT TOLERATED PROCEDURE WELL AND VITAL SIGNS REMAINED STABLE THROUGH OUT. PT NOW BACK IN ROOM. LINENS CHANGED. BILATERAL WRIST RESTRAINTS IN PLACE.
--- NOTE | 2021-07-17 18:19 | NUR ---
NOT NECESSARY AT THIS TIME. PT WAKES TO VERBAL STIMULATION AND FOLLOWS COMMANDS WITH EASE.
[2021-07-18] VITALS (721 sets, daily range): BP systolic 125–145; BP diastolic 80–96; PULSE 86–96; TEMP 99.3–101.3; O2SAT 68–100
[2021-07-18 04:43] LABS: BASO % 0.2 % (0.0-2.0); EOS # 0.1 K/mm3 (0.0-0.7); EOS % 1.4 % (0.0-4.0); GRAN % 74.4 % (42.2-75.2); HEMOGLOBIN 11.4 g/dl (13.5-18.0); LYMPH # 0.9 K/mm3 (1.2-3.4); LYMPH % 10.6 % (20.0-51.0); MEAN CELL VOLUME 101 fl (80.0-100.0); MEAN CORPUSCULAR HEMOGLOBIN 32 pg (27-31); MEAN CORPUSCULAR HGB CONC 32 g/dl (33.0-37.0); MONO % 12.3 % (1.7-9.3); PLATELET COUNT 173 K/mm3 (130-400); RED BLOOD COUNT 3.57 M/mm3 (4.20-5.60); REDCELL DISTRIBUTION WIDTH-CV 14.9 % (11.5-14.5)
[2021-07-18 05:04] LABS: CALCIUM 9.4 mg/dL (8.4-10.2); CREATININE, serum 0.81 mg/dL (0.72-1.25); POTASSIUM 4.2 mmol/L (3.5-4.5)
[2021-07-18 05:11] LABS: ARTERIAL BLD GAS O2 SATURATION 93.3 % (92-100); ARTERIAL BLD GAS TCO2 CT 22.1; ARTERIAL BLOOD GAS BASE EXCESS -2.5 (-2-2); ARTERIAL BLOOD GAS HCO3 21.1 meq/L (22-26); ARTERIAL BLOOD GAS PCO2 33.1 mmHg (35-45); ARTERIAL BLOOD GAS PO2 65.3 mmHg (80-100); ARTERIAL BLOOD GAS pH 7.42 (7.35-7.45)
--- NOTE | 2021-07-18 05:13 | NUR ---
ATTEMPTED TO WEAN FENTANYL GTT DOWN, PT RR INCREASED TO 40'S, PEAK PRESSURE 45. FENANTYL GTT INCREASED FROM 150 TO 175 MCG/HR.
--- NOTE | 2021-07-18 06:15 | NUR ---
PT FOLLOWS COMMANDS, MOVES ALL EXTREMETIES ON CURRENT SEDATION. T MAX 101.3, PRN TYLENOL GIVEN DOCUMENTED IN AUG. VSS. DID HAVE SMEAR, BUT NOT ENOUGH STOOL TO COLLECT SAMPLE. LEFT UPPER ARM PICC FLUSHES AND ASPIRATES WELL.
--- NOTE | 2021-07-18 11:19 | NUR ---
REPORT RECEIVED FROM IRIS TADEO. BILATERAL WRIST RESTRAINTS IN PLACE. FC TO DEPENDENT DRAINAGE. LEFT SIDE PICC LINE IN PLACE; CLEAN, DRY, AND INTACT. SEE GTT FLOW SHEET FOR INFUSIONS AND RATES. SIZE 8.0 ETT 24CM AT THE TEETH. PT ACCEPTING VENTILATION WITH CURRENT VENT SETTINGS; AC MODE, TV 430, PEEP 5, FIO2 30%, AND RATE 25. OG TUBE 75CM A TEETH. TF ON HOLD DUE TO ILEUS. PLAN OF THORACENTESIS TODAY. TRACH AND PEG PLACEMENT TOMORROW. VITAL SIGNS STABLE.
--- NOTE | 2021-07-18 11:50 | NUR ---
retail worker contacted Eduardo with [facility] and gave a referral with faxed clinical information. Worker contacted patient's spouse, Latricia and advised of the above information. Worker provided information on [facility] and answered Latricia's questions. Latricia verbalized understanding and agreement with the above information. Latricia stated that her primary care provider has completed her [place] paperwork.
--- NOTE | 2021-07-18 12:09 | NUR ---
Vancomycin Follow-up Pharmacy Note Current regimen: Vancomycin 1.5 gm IV q8h Vancomycin trough: 13.58 Adjustments: Will increase Vancomycin to 1.75 gm IV q8h. Pharmacy will continue to closely monitor and check a Vancomycin trough on 07/20/21.
--- NOTE | 2021-07-18 18:11 | NUR ---
NOT NECESSARY FOR PT AT THIS TIME. PT RESPONDS WITH EASE AND FOLLOWS COMMANDS.
--- NOTE | 2021-07-18 21:46 | NUR ---
Patient had large watery bowel movement. Cares provided. Assessment complete and charted.
[2021-07-19] VITALS (661 sets, daily range): BP systolic 114–191; BP diastolic 75–121; PULSE 7–110; TEMP 100–102.3; O2SAT 43–100
--- NOTE | 2021-07-19 00:52 | NUR ---
CIRCUIT CHANGE DUE TO EXCESSIVE CONTAMINATION
--- NOTE | 2021-07-19 04:29 | NUR ---
SEDATION VACATION NOT PREFORMED. PATIENT AWAKE AND FOLLOWS COMMANDS ON CURRENT SEDATION. PATIENT ALSO ATTEMPTS TO COMMUNITCATE WITH GESTURES AND MOUTHING WORDS CURRENTLY. WITH SEDATION DECRASED PATIENT BECOMES HYPERTENSIVE AND TACHY.
[2021-07-19 05:35] LABS: ARTERIAL BLOOD GAS PCO2 36.6 mmHg (35-45); ARTERIAL BLOOD GAS pH 7.44 (7.35-7.45)
[2021-07-19 05:36] LABS: ARTERIAL BLD GAS O2 SATURATION 81.1 % (92-100); ARTERIAL BLD GAS TCO2 CT 25.5; ARTERIAL BLOOD GAS BASE EXCESS 0.4 (-2-2); ARTERIAL BLOOD GAS HCO3 24.4 meq/L (22-26); ARTERIAL BLOOD GAS PO2 43.8 mmHg (80-100)
[2021-07-19 05:54] LABS: BASO % 0.4 % (0.0-2.0); EOS # 0.1 K/mm3 (0.0-0.7); EOS % 1.6 % (0.0-4.0); GRAN # 4.2 K/mm3 (1.4-6.5); LYMPH # 0.7 K/mm3 (1.2-3.4); LYMPH % 11.8 % (20.0-51.0); MEAN CELL VOLUME 98 fl (80.0-100.0); MEAN CORPUSCULAR HEMOGLOBIN 31 pg (27-31); MEAN CORPUSCULAR HGB CONC 32 g/dl (33.0-37.0); MEAN PLATELET VOLUME 10.4 fl (7.4-10.4); MONO # 0.6 K/mm3 (0.1-0.6); MONO % 11.3 % (1.7-9.3); PLATELET COUNT 166 K/mm3 (130-400); RED BLOOD COUNT 3.18 M/mm3 (4.20-5.60); REDCELL DISTRIBUTION WIDTH-CV 14.5 % (11.5-14.5)
[2021-07-19 06:00] LABS: HEMATOCRIT 31.3 % (42.0-52.0)
--- NOTE | 2021-07-19 06:11 | NUR ---
Patient had large watery bowel movement during night. Awake and following commands/answering questions most of night. Resting in bed this AM. Patient denies needs at this time.
[2021-07-19 06:15] LABS: C-REACTIVE PROTEIN 22.68 mg/dL (0.00-0.50); CALCIUM 8.7 mg/dL (8.4-10.2); CREATININE, serum 0.62 mg/dL (0.72-1.25); POTASSIUM 3.3 mmol/L (3.5-4.5)
--- NOTE | 2021-07-19 07:29 | NUR ---
Report given to IRIS Sullivan
[2021-07-19 09:59] LABS: ARTERIAL BLD GAS O2 SATURATION 94.4 % (92-100); ARTERIAL BLD GAS TCO2 CT 24.9; ARTERIAL BLOOD GAS BASE EXCESS 0.4 (-2-2); ARTERIAL BLOOD GAS HCO3 23.8 meq/L (22-26); ARTERIAL BLOOD GAS PCO2 34.3 mmHg (35-45); ARTERIAL BLOOD GAS PO2 70.8 mmHg (80-100); ARTERIAL BLOOD GAS pH 7.46 (7.35-7.45)
--- NOTE | 2021-07-19 11:57 | NUR ---
Family bedside. Consent for procedure signed by . Family will be placed in waiting room while PT is in surgery. When PT comes back, he will be palced in a clean room and out of COVID isolation. Both family members are able to stay today and be with the PT,but are aware that starting tomorrow only one visitor a day can see the PT.
--- NOTE | 2021-07-19 12:35 | NUR ---
PT LEFT TO OR WITH WITH STAFF IN ICU BED.
--- NOTE | 2021-07-19 14:00 | NUR ---
PT RETURNED FROM OR.
--- NOTE | 2021-07-19 17:06 | NUR ---
NO SEDATION VACATION NEEDED. PT IS LIGHTLY SEDATED AND WILL FOLLOW COMMANDS.
--- NOTE | 2021-07-19 19:00 | NUR ---
Received report from IRIS Alvarado.
--- NOTE | 2021-07-19 20:00 | NUR ---
Patient resting quietly in bed. Remains on ventilator; tolerating well. Some small blood-tinged drainage noted at trach site. PEG site is clean, dry, and intact. All vitals within normal limits. Receiving fentanyl, versed, and precedex drips. Patient is alert, partially oriented, and following verbal commands.
--- NOTE | 2021-07-19 21:18 | NUR ---
TRACH CARE PERFORMED AT THIS TIME
--- NOTE | 2021-07-19 23:48 | NUR ---
PT. NOT DISTURBED AT THIS TIME; RESTING PEACFULLY; TRACH RECENTLY CLEANED; NO DISTRESS OR VISIBLES SIGNS TO WARRANT SUCTION OR OTHER INTERVENTION AT THIS TIME
[2021-07-20] VITALS (760 sets, daily range): BP systolic 114–138; BP diastolic 64–93; PULSE 89–105; TEMP 99.8–100.3; O2SAT 76–100
[2021-07-20 05:11] LABS: ARTERIAL BLD GAS O2 SATURATION 93.8 % (92-100); ARTERIAL BLD GAS TCO2 CT 23.7; ARTERIAL BLOOD GAS BASE EXCESS -1.3 (-2-2); ARTERIAL BLOOD GAS HCO3 22.6 meq/L (22-26); ARTERIAL BLOOD GAS PCO2 34.6 mmHg (35-45); ARTERIAL BLOOD GAS PO2 68.8 mmHg (80-100); ARTERIAL BLOOD GAS pH 7.43 (7.35-7.45)
[2021-07-20 05:36] LABS: BASO % 0.3 % (0.0-2.0); EOS # 0.1 K/mm3 (0.0-0.7); EOS % 0.7 % (0.0-4.0); GRAN # 5.7 K/mm3 (1.4-6.5); GRAN % 79.5 % (42.2-75.2); LYMPH # 0.7 K/mm3 (1.2-3.4); LYMPH % 10.3 % (20.0-51.0); MEAN CELL VOLUME 100 fl (80.0-100.0); MEAN CORPUSCULAR HGB CONC 31 g/dl (33.0-37.0); MEAN PLATELET VOLUME 10.1 fl (7.4-10.4); MONO # 0.6 K/mm3 (0.1-0.6); MONO % 7.9 % (1.7-9.3); PLATELET COUNT 183 K/mm3 (130-400); RED BLOOD COUNT 2.86 M/mm3 (4.20-5.60); REDCELL DISTRIBUTION WIDTH-CV 14.6 % (11.5-14.5)
[2021-07-20 05:38] LABS: HEMATOCRIT 28.7 % (42.0-52.0); HEMOGLOBIN 8.9 g/dl (13.5-18.0); MEAN CORPUSCULAR HEMOGLOBIN 31 pg (27-31)
[2021-07-20 05:48] LABS: CALCIUM 8.3 mg/dL (8.4-10.2); CREATININE, serum 0.65 mg/dL (0.72-1.25); POTASSIUM 3.6 mmol/L (3.5-4.5)
--- NOTE | 2021-07-20 12:00 | NUR ---
RN REQUESTED RT DEEP SUCTION AND LAVAGE PT. PT LOOKING RELAXED AND COMFORTABLE ON ENTRY WITH AT BEDSIDE. SUCTION AND LAVAGE PERFORMED WITH PT COUGHING STRONGLY. VENT VOLUMES DROPPED WITH ALARMS OF DISCONNECT ON VENT. VENT QUICKLY TROUBLESHOOTED WITH NO OBVIOUS ISSUE. DR. MCINTYRE ASKED TO COME INTO ROOM RT BAGGED PT. CXR ORDERED FOR POSSIBLE PNEUMO, NONE FOUND. VENT CHANGED OUT WITH SAME RESULT OF ALARMS FOR LOW VT AND DISCONNECT. BRONCH PERFORMED BY W/O INCIDENT. SUSPECTED CUFF LEAK AND ENT CALLED TO CONSULT. VT ISSUE APPEARED TO RESOLVE AFTER SEVERAL MORE MINUTES AND INCREASING PT SEDATION. INNER CANNULA REMOVED FROM TRACH WHICH SEEMED TO IMPROVE VT. PT APPEARED TO BE DOING BETTER WITH DECREASE IN RR AND STABLE VT. WILL WATCH CLOSELY FOR FURTHER PROBLEMS.
--- NOTE | 2021-07-20 12:30 | NUR ---
Bronchoscopy was initiated at this time with consent from . Pt was having low tidal volumes and possible leaking in the cuff of the TRACH. PT tolerated Bronchoscopy well.
--- NOTE | 2021-07-20 17:00 | NUR ---
PT SLIGHTLY SEDATED-DROWSY. WAKES WHEN NURSE ENTERS ROOM. FOLLOWS COMMANDS
[2021-07-20 17:28] LABS: TB GOLD INTERPRETATION Negative (Negative)
--- NOTE | 2021-07-20 19:00 | NUR ---
Received report from IRIS Alvarado.
--- NOTE | 2021-07-20 19:20 | NUR ---
Received report from IRIS Alvarado.
--- NOTE | 2021-07-20 19:29 | NUR ---
Updated Latricia on PTs status.
--- NOTE | 2021-07-20 19:45 | NUR ---
Patient resting quietly in bed. Remains on ventilator receiving 50% FiO2 with PEEP of 8. Continues to receive fentanyl, versed, and precedex drips. Patient is alert although drowsy and is following verbal commands. Vitals within normal limits. Linens exchanged with assistance of Yossi MCKEON. Patient tolerated position changes well.
--- NOTE | 2021-07-20 20:10 | NUR ---
PT. INCREASE IN TACHYPNEA AFTER TURNING, CHANGING BED LINENS AND ROTATING PATIENT POSITION
[2021-07-21] VITALS (941 sets, daily range): BP systolic 117–145; BP diastolic 68–85; PULSE 88–105; TEMP 99.1–101.1; O2SAT 85–100
[2021-07-21 05:14] LABS: MEAN CELL VOLUME 102 fl (80.0-100.0); MEAN CORPUSCULAR HGB CONC 31 g/dl (33.0-37.0); PLATELET COUNT 122 K/mm3 (130-400); RED BLOOD COUNT 2.49 M/mm3 (4.20-5.60); REDCELL DISTRIBUTION WIDTH-CV 14.5 % (11.5-14.5)
[2021-07-21 05:35] LABS: CALCIUM 7.6 mg/dL (8.4-10.2); CREATININE, serum 0.6 mg/dL (0.72-1.25); POTASSIUM 3.3 mmol/L (3.5-4.5)
[2021-07-21 05:51] LABS: ARTERIAL BLD GAS O2 SATURATION 95.3 % (92-100); ARTERIAL BLD GAS TCO2 CT 26.8; ARTERIAL BLOOD GAS BASE EXCESS 0.7 (-2-2); ARTERIAL BLOOD GAS HCO3 25.5 meq/L (22-26); ARTERIAL BLOOD GAS PCO2 41.5 mmHg (35-45); ARTERIAL BLOOD GAS pH 7.41 (7.35-7.45)
[2021-07-21 05:51] LABS: HEMATOCRIT 25.3 % (42.0-52.0); HEMOGLOBIN 7.8 g/dl (13.5-18.0); MEAN CORPUSCULAR HEMOGLOBIN 31 pg (27-31)
[2021-07-21 06:06] LABS: BAND 7 % (0-10); EOSINOPHIL 3 % (0-4); HYPOCHROMIA 1+; LYMPHOCYTE 11 % (20.0-51.0); NEUTROPHILS 74 % (42.0-75.2)
--- NOTE | 2021-07-21 07:38 | NUR ---
Report given to IRIS Rome.
--- NOTE | 2021-07-21 10:00 | NUR ---
Dr. Dempsey notified that PICC line is flushing but not drawing blood at this time. Able to obatin am labs through picc with some difficulty on hourly shift. Ok to use picc will re-address with Aide, PICC line nurse tomorrow.
[2021-07-21 12:48] LABS: HEMATOCRIT 27.6 % (42.0-52.0); HEMOGLOBIN 8.6 g/dl (13.5-18.0)
--- NOTE | 2021-07-21 17:29 | NUR ---
Ok per Dr. Dempsey and Dr. Tello to take out of isolation due to negative TB serology lab.
--- NOTE | 2021-07-21 21:02 | NUR ---
Assessment complete. Patient on vent with trach. Patient video chatting with patient
[2021-07-22] VITALS (776 sets, daily range): BP systolic 122–159; BP diastolic 62–82; PULSE 85–137; TEMP 98.5–101.6; O2SAT 79–100
--- NOTE | 2021-07-22 05:11 | NUR ---
patient is awakening and following commands on current sedation.
[2021-07-22 06:15] LABS: MEAN CELL VOLUME 102 fl (80.0-100.0); MEAN CORPUSCULAR HGB CONC 31 g/dl (33.0-37.0); MEAN PLATELET VOLUME 10.5 fl (7.4-10.4); PLATELET COUNT 212 K/mm3 (130-400); RED BLOOD COUNT 2.51 M/mm3 (4.20-5.60); REDCELL DISTRIBUTION WIDTH-CV 14.6 % (11.5-14.5)
[2021-07-22 06:20] LABS: HEMATOCRIT 25.5 % (42.0-52.0); HEMOGLOBIN 7.9 g/dl (13.5-18.0); MEAN CORPUSCULAR HEMOGLOBIN 31 pg (27-31)
--- NOTE | 2021-07-22 06:36 | NUR ---
Patient remained intubated and sedated during night. Repositioned during night.
[2021-07-22 06:38] LABS: BILIRUBIN,TOTAL 0.5 mg/dL (0.2-1.2); CREATININE, serum 0.56 mg/dL (0.72-1.25); MAGNESIUM 2.1 mg/dL (1.6-2.6); PHOSPHOROUS 2.5 mg/dL (2.3-4.7); POTASSIUM 3.8 mmol/L (3.5-4.5); TOTAL PROTEIN 5.5 gm/dL (6.2-8.1)
[2021-07-22 06:50] LABS: ARTERIAL BLD GAS O2 SATURATION 95.2 % (92-100); ARTERIAL BLD GAS TCO2 CT 28.3; ARTERIAL BLOOD GAS BASE EXCESS 2.5 (-2-2); ARTERIAL BLOOD GAS PCO2 41.3 mmHg (35-45); ARTERIAL BLOOD GAS PO2 76.5 mmHg (80-100); ARTERIAL BLOOD GAS pH 7.43 (7.35-7.45)
--- NOTE | 2021-07-22 07:03 | NUR ---
Report given to IRIS Rome
[2021-07-22 07:20] LABS: BAND 1 % (0-10); EOSINOPHIL 1 % (0-4); LYMPHOCYTE 17 % (20.0-51.0); NEUTROPHILS 74 % (42.0-75.2); PLATELET ESTIMATE NORMAL (NORMAL)
[2021-07-22 07:21] LABS: HYPOCHROMIA 2+
--- NOTE | 2021-07-22 09:37 | NUR ---
Chest xray shows and new large right sided pneumothorax. Dr. Dempsey discussed with patient's DPOA and received permission to place a chest tube. During chest tube insertion patient became briefly hypotensive but resolved after CT was attached to suction. Will continue to monitor.
--- NOTE | 2021-07-22 11:57 | NUR ---
Dr. Ward at bedside at 1146 for DANIELA. Procedure completed at 1157. Coughed initiatlly but tolerated well and VS stable throughout.
[2021-07-22 15:45] LABS: COLLECTION METHOD CLEAN CATCH
[2021-07-22 15:56] LABS: AMORPHOUS CRYSTAL Present (NOT PRESENT); MUCOUS Present (NOT PRESENT); PH 5 (5-8); SQUAMOUS EPITHELIAL 0-2 /hpf (0-10); URINE APPEARANCE Turbid (CLEAR/HAZY); URINE BACTERIA Rare /hpf (NONE SEEN); URINE BILIRUBIN Negative (NEGATIVE); URINE BLOOD 2+ (NEGATIVE); URINE COLOR Amber (YELLOW); URINE GLUCOSE Negative (NEGATIVE); URINE KETONE Negative (NEGATIVE); URINE LEUKOCYTE ESTERASE Negative (NEGATIVE); URINE NITRATE Negative (NEGATIVE); URINE PROTEIN(semi-quant) 1+ (NEGATIVE); URINE RBC >50 /hpf (0-2); URINE UROBILINOGEN >=4.0 (NEGATIVE)
--- NOTE | 2021-07-22 17:00 | NUR ---
Sedation vacation not performed. Patient awakens easily and follows commands. Sedation has been reduced slowly throughout the shift.
--- NOTE | 2021-07-22 20:08 | NUR ---
Patient awake and restless, tachy 120-140, and bp 150s systolic. Versed increased, also given scheduled ativan. Patient follows some commands. Assessment complete and charted.
--- NOTE | 2021-07-22 21:40 | NUR ---
See physician notification regarding fevers. Spoke with patient , Latricia, x2 this evening. Updated Latricia regarding fevers and blood cultures/POC. Latricia requesting phone call from Dr. Dempsey in morning to discuss PE on CT that was found, will relay this information onto next shift. Video chat set up for Latricia to see patient. Latricia denied any other concerns at that time.
[2021-07-23] VITALS (721 sets, daily range): BP systolic 106–142; BP diastolic 67–87; PULSE 85–112; TEMP 99.9–101.5; O2SAT 84–100
--- NOTE | 2021-07-23 05:38 | NUR ---
Patient tachy and fighting vent with minimal sedation changes.
[2021-07-23 05:52] LABS: BASO % 0.2 % (0.0-2.0); EOS # 0.2 K/mm3 (0.0-0.7); EOS % 4.1 % (0.0-4.0); GRAN # 4.1 K/mm3 (1.4-6.5); GRAN % 71.8 % (42.2-75.2); LYMPH # 0.8 K/mm3 (1.2-3.4); LYMPH % 14.5 % (20.0-51.0); MEAN CELL VOLUME 104 fl (80.0-100.0); MEAN CORPUSCULAR HGB CONC 30 g/dl (33.0-37.0); MEAN PLATELET VOLUME 9.9 fl (7.4-10.4); MONO # 0.5 K/mm3 (0.1-0.6); MONO % 8.3 % (1.7-9.3); PLATELET COUNT 230 K/mm3 (130-400); RED BLOOD COUNT 2.47 M/mm3 (4.20-5.60); REDCELL DISTRIBUTION WIDTH-CV 14.6 % (11.5-14.5)
[2021-07-23 05:56] LABS: HEMATOCRIT 25.7 % (42.0-52.0); HEMOGLOBIN 7.8 g/dl (13.5-18.0); MEAN CORPUSCULAR HEMOGLOBIN 32 pg (27-31)
--- NOTE | 2021-07-23 06:07 | NUR ---
Patient had fever over night. Was given tylenol earlier in night. Also had large watery BM this morning. Awakens and follows some commands. Patient become tachy 120-140 and coughing against vent with sedation changes earlier in night. Versed was increased at that time.
[2021-07-23 06:09] LABS: C-REACTIVE PROTEIN 18.81 mg/dL (0.00-0.50); CALCIUM 7.9 mg/dL (8.4-10.2); CREATININE, serum 0.58 mg/dL (0.72-1.25); POTASSIUM 3.7 mmol/L (3.5-4.5)
--- NOTE | 2021-07-23 07:22 | NUR ---
Report given to IRIS Garces
[2021-07-23 07:36] LABS: ARTERIAL BLD GAS O2 SATURATION 93.5 % (92-100); ARTERIAL BLD GAS TCO2 CT 28.8; ARTERIAL BLOOD GAS HCO3 27.3 meq/L (22-26); ARTERIAL BLOOD GAS PCO2 46.5 mmHg (35-45); ARTERIAL BLOOD GAS PO2 70.3 mmHg (80-100); ARTERIAL BLOOD GAS pH 7.39 (7.35-7.45)
--- NOTE | 2021-07-23 10:30 | NUR ---
, JACQUELYN, IS HERE AND DR. MCINTYRE SPEAKS WITH HER REGARDING PLAN OF CARE. PATIENT TAKEN TO CT FOR CT OF CHEST. NO ISSUES DURING THIS TRIP. PATIENT TOLERATED WELL.
--- NOTE | 2021-07-23 10:35 | NUR ---
KUMAR faxed updates to Eduardo at [facility].
--- NOTE | 2021-07-23 15:00 | NUR ---
PATIENT CONSISTENTLY DESAT'S TO 87% AFTER BEING TURNED BACK AND FORTH DURING CLEAN UP OF STOOL. BUSINESS SERVICES COORDINATOR RADHA CALLED. FIO2 TURNED UP TO 45%
--- NOTE | 2021-07-23 17:00 | NUR ---
CALL RECEIVED FROM DR. LAINEZ. PATIENT ACCEPTED AT [facility]. THEY WILL CALL IN THE MORNING WITH A BED ASSIGNMENT
--- NOTE | 2021-07-23 20:12 | NUR ---
Assessment complete and charted. Patient awake and following some commands. Coughing against vent.
[2021-07-24] VITALS (295 sets, daily range): BP systolic 122–142; BP diastolic 79–86; PULSE 86–93; TEMP 100.3–101; O2SAT 87–99
[2021-07-24 04:09] LABS: ARTERIAL BLD GAS O2 SATURATION 92.8 % (92-100); ARTERIAL BLD GAS TCO2 CT 25.5; ARTERIAL BLOOD GAS BASE EXCESS -1.1 (-2-2); ARTERIAL BLOOD GAS HCO3 24.2 meq/L (22-26); ARTERIAL BLOOD GAS PCO2 42.5 mmHg (35-45); ARTERIAL BLOOD GAS PO2 62.6 mmHg (80-100); ARTERIAL BLOOD GAS pH 7.37 (7.35-7.45)
--- NOTE | 2021-07-24 05:38 | NUR ---
Plans for patiet to be transferred to [facility] today. Patient awakens and follows some commands on current sedation.
[2021-07-24 06:08] LABS: MEAN CELL VOLUME 102 fl (80.0-100.0); MEAN CORPUSCULAR HGB CONC 31 g/dl (33.0-37.0); PLATELET COUNT 250 K/mm3 (130-400); RED BLOOD COUNT 2.58 M/mm3 (4.20-5.60); REDCELL DISTRIBUTION WIDTH-CV 14.4 % (11.5-14.5)
[2021-07-24 06:09] LABS: HEMATOCRIT 26.3 % (42.0-52.0); HEMOGLOBIN 8.1 g/dl (13.5-18.0); MEAN CORPUSCULAR HEMOGLOBIN 31 pg (27-31)
[2021-07-24 06:27] LABS: CALCIUM 8.5 mg/dL (8.4-10.2); CREATININE, serum 0.61 mg/dL (0.72-1.25)
--- NOTE | 2021-07-24 07:22 | NUR ---
Report given to IRIS Dia
--- NOTE | 2021-07-24 07:45 | NUR ---
PHONE CALLED RECEIVED FROM [facility] BACKUP ADMINISTRATOR; RYAN. RYAN CALLING TO LET US KNOW THAT THERE IS A BED AVAILABLE FOR PT TO TRANSFER TO. PT WILL BE GOING TO ROOM [id number] AND HAS BEEN ACCEPTED BY DR. ANCA FARMER.
--- NOTE | 2021-07-24 08:30 | NUR ---
EMS NOTIFIED OF NEEDED TRANSFER TO [facility]. PT'S NOTIFED OF BED PLACEMENT AND WILL BE ARRIVING SHORTLY TO BE WITH PT.
--- NOTE | 2021-07-24 08:58 | NUR ---
The patient is to transfer to [facility] today for a VATS. KUMAR updated Eduardo at [facility]. No additional needs at this time.
--- NOTE | 2021-07-24 09:10 | NUR ---
EMS CALLED TO NOTIFY THIS NURSE THAT THEY WILL BE ARRIVING TO TRANSPORT PT IN APPROX. 30-40 MINUTES.
--- NOTE | 2021-07-24 10:05 | NUR ---
PT LEFT FACILITY WITH EMS AT THIS TIME. REPORT WAS GIVEN TO EMS CREW. PT'S GTTS CONTINUED; FENTANYL @ 150MCG/HR WITH VTBI 52ML, VERSED @ 5MG/HR WITH VTBI 47ML. PT'S ITEMS WERE RETURNED TO AND TAKEN HOME. THESE ITEMS INCLUDE; TOILETRY BAG, CELLPHONE, OPERA SINGER, AND PICTURES. PT'S VITAL SIGNS STABLE AT TIME OF TRANSPORT. MEDIC WAS EDUCATED BY RT ON HOW TO SUCTION TRACH AND HOW TO SWITCH OUT INNER CANNULA IF NEEDED.
--- NOTE | 2021-07-24 12:30 | NUR ---
REPORT RECEIVED FROM IRIS MARTINEZ. FC TO DEPENDENT DRAINAGE. BILATERAL SOFT WRIST RESTRAINTS IN PLACE. LEFT UPPER ARM PICC IN PLACE WITH MEDICAITONS INFUSING; SEE GTT FLOW SHEET. 6.[address] WITH MECHANICAL VENTILATION; CURRENT SETTINGS; AC MODE, TV 400, RR 25, FIO2 45%, PEEP 8. PT APPEARS TO BE RESTING COMFORTABLY. VITAL SIGNS STABLE.
== END 2021-07-24 10:05 | disposition short-term general hospital (02) | DRG 4 ==
LOC: COL.ER 18:54 → MEDICAL 06-27 13:25 → ICU 06-27 13:25 → COL.ER 06-27 13:25 → ICU 06-29 15:23 → MEDICAL 06-29 15:23 → ICU 06-29 15:24 → IMCU 07-12 15:19 → ICU 07-12 15:19
PROVIDERS: Family Medicine; Internal Medicine; Internal Medicine Pulmonary Disease; Internal Medicine Sleep Medicine; Nurse Practitioner Family; Physician Assistant; Student in an Organized Health Care Education/Training Program; ADMIT Student in an Organized Health Care Education/Training Program
PROC: XW033E5 Introduction of Remdesivir Anti-infective into Peripheral Vein, Percutaneous Approach, New Technology Group 5 (ICD-10-PCS; 2021-06-27)
PROC: 02HV33Z Insertion of Infusion Device into Superior Vena Cava, Percutaneous Approach (ICD-10-PCS; 2021-06-27)
PROC: 5A09357 Assistance with Respiratory Ventilation, Less than 24 Consecutive Hours, Continuous Positive Airway Pressure (ICD-10-PCS; 2021-06-29)
PROC: 5A1955Z Respiratory Ventilation, Greater than 96 Consecutive Hours (ICD-10-PCS; 2021-06-30)
PROC: 0BH17EZ Insertion of Endotracheal Airway into Trachea, Via Natural or Artificial Opening (ICD-10-PCS; 2021-06-30)
PROC: 05HY33Z Insertion of Infusion Device into Upper Vein, Percutaneous Approach (ICD-10-PCS; 2021-06-30)
PROC: 02HV33Z Insertion of Infusion Device into Superior Vena Cava, Percutaneous Approach (ICD-10-PCS; 2021-07-15)
PROC: 02HV33Z Insertion of Infusion Device into Superior Vena Cava, Percutaneous Approach (ICD-10-PCS; 2021-07-16)
PROC: 0DH63UZ Insertion of Feeding Device into Stomach, Percutaneous Approach (ICD-10-PCS; 2021-07-19)
PROC: 0B110F4 Bypass Trachea to Cutaneous with Tracheostomy Device, Open Approach (ICD-10-PCS; principal; 2021-07-19 12:00)
PROC: 0BD98ZX Extraction of Lingula Bronchus, Via Natural or Artificial Opening Endoscopic, Diagnostic (ICD-10-PCS; 2021-07-20)
PROC: 0BD58ZX Extraction of Right Middle Lobe Bronchus, Via Natural or Artificial Opening Endoscopic, Diagnostic (ICD-10-PCS; 2021-07-20)
PROC: 0BD78ZX Extraction of Left Main Bronchus, Via Natural or Artificial Opening Endoscopic, Diagnostic (ICD-10-PCS; 2021-07-20)
PROC: 0BD68ZX Extraction of Right Lower Lobe Bronchus, Via Natural or Artificial Opening Endoscopic, Diagnostic (ICD-10-PCS; 2021-07-20)
PROC: 0BDB8ZX Extraction of Left Lower Lobe Bronchus, Via Natural or Artificial Opening Endoscopic, Diagnostic (ICD-10-PCS; 2021-07-20)
DX: U07.1 COVID-19 (principal); J12.82 Pneumonia due to coronavirus disease 2019; J96.01 Acute respiratory failure with hypoxia; J85.0 Gangrene and necrosis of lung; N17.9 Acute kidney failure, unspecified; E87.1 Hypo-osmolality and hyponatremia; I82.621 Acute embolism and thrombosis of deep veins of right upper extremity; K56.7 Ileus, unspecified; J90 Pleural effusion, not elsewhere classified; E87.0 Hyperosmolality and hypernatremia; I10 Essential (primary) hypertension; E78.00 Pure hypercholesterolemia, unspecified; G43.909 Migraine, unspecified, not intractable, without status migrainosus; E87.6 Hypokalemia; K59.00 Constipation, unspecified; D69.6 Thrombocytopenia, unspecified; B95.61 Methicillin susceptible Staphylococcus aureus infection as the cause of diseases classified elsewhere; Z73.0 Burn-out
CPT/HCPCS: 99222-AI; 99233-AI; A9284; C1751; C1892; C9113; J0248; J0348; J0696; J1100; J1644; J1650; J1652; J1940; J2060; J2185; J2212; J2250; J2543; J2704; J3010; J3370; J3480; J7030; J7040; J7050; J7060; J7120; J8540; Q0249; Q9967

== ENCOUNTER 2021-08-24 13:58 | Emergency (ER) | payer BC ==
[~2021-08-24] VITALS: Ht 185.4 cm; Wt 109.1 kg
[2021-08-24 14:21] VITALS: TEMP 98.4
[2021-08-24] MEDS ORDERED: ZOLOFT 25MG25 MG PO (14:26)
[2021-08-24] MEDS ORDERED: ELIQUIS 5MG PO (14:26)
[2021-08-24] MEDS ORDERED: PHENERGAN W/CO120 M1 PO (14:28)
[2021-08-24] MEDS ORDERED: PRILOSEC 20MG20 MG PO (14:28)
[2021-08-24] MEDS ORDERED: ROXICODONE 55 MG/TAB PO (14:28)
[2021-08-24] MEDS ORDERED: DESYREL 50MG50 MG PO (14:28)
[2021-08-24] MEDS ORDERED: LASIX 40MG TABL40 MG PO (16:00)
[2021-08-24 16:17] VITALS: BP 111/61; PULSE 111
== END 2021-08-24 16:17 | disposition home or self-care (01) ==
LOC: COL.ER 13:58
DX: J81.1 Chronic pulmonary edema (principal); Z86.16 Personal history of COVID-19

== ENCOUNTER 2021-10-07 12:58 | Inpatient (IN) | payer BC ==
[~2021-10-07] VITALS: Ht 185.4 cm; Wt 116.9 kg
[2021-10-07] VITALS (487 sets, daily range): BP systolic 88–126; BP diastolic 58–88; PULSE 84–102; TEMP 97–98.7; O2SAT 91–100
[~2021-10-07 12:58] MED LIST changes: +ELIQUIS 5MG PO; +LASIX 40MG TABL40 MG PO; +PHENERGAN W/CO120 M1 PO; +ROXICODONE 55 MG/TAB PO; +ZOLOFT 25MG25 MG PO
[2021-10-07 13:22] LABS: BASO % 0.3 % (0.0-2.0); EOS # 0.1 K/mm3 (0.0-0.7); EOS % 2.2 % (0.0-4.0); GRAN % 51.3 % (42.2-75.2); LYMPH # 2.1 K/mm3 (1.2-3.4); LYMPH % 34.9 % (20.0-51.0); MEAN CELL VOLUME 94 fl (80.0-100.0); MEAN CORPUSCULAR HGB CONC 32 g/dl (33.0-37.0); MEAN PLATELET VOLUME 9.3 fl (7.4-10.4); MONO # 0.6 K/mm3 (0.1-0.6); MONO % 10.4 % (1.7-9.3); PLATELET COUNT 352 K/mm3 (130-400); RED BLOOD COUNT 3.19 M/mm3 (4.20-5.60); REDCELL DISTRIBUTION WIDTH-CV 18.6 % (11.5-14.5)
[2021-10-07 13:23] LABS: HEMOGLOBIN 9.5 g/dl (13.5-18.0); MEAN CORPUSCULAR HEMOGLOBIN 30 pg (27-31)
[2021-10-07 13:40] LABS: ALBUMIN 3.3 gm/dL (3.5-5.0); BILIRUBIN,TOTAL 0.4 mg/dL (0.2-1.2); CALCIUM 8.7 mg/dL (8.4-10.2); CREATININE, serum 1.05 mg/dL (0.72-1.25); POTASSIUM 4.1 mmol/L (3.5-4.5); TOTAL PROTEIN 6.4 gm/dL (6.2-8.1)
--- NOTE | 2021-10-07 14:02 | NUR ---
PATIENT STATES HE HAD A BREAKFAST SANDWICH AROUND 1000 THIS AM. LAST FLUID INTAKE SAME TIME
--- NOTE | 2021-10-07 15:44 | NUR ---
Scheduled with JAYNE CALLAWAY DR. DIERENFELDT EGD AT 1700. ALL CALLS HAVE BEEN MADE, CONSENT SIGNED AND QUESTIONS ANSWERED.
[2021-10-07] MEDS ORDERED: AMITRIPTYLINE H10 M1 PO (16:52)
[2021-10-07] MEDS ORDERED: AMOXICILLIN 8751 TAB PO (16:53)
[2021-10-07 17:40] LABS: HEMATOCRIT 28.1 % (42.0-52.0)
--- NOTE | 2021-10-07 19:06 | NUR ---
PT Left via bed to EGD at 1840.
--- NOTE | 2021-10-07 19:35 | NUR ---
patient returns from egd procedure, patient denies pain at this time, assessment complete,
[2021-10-08] VITALS (1162 sets, daily range): BP systolic 98–146; BP diastolic 9–99; PULSE 84–111; TEMP 97.6–98.4; O2SAT 82–100
[2021-10-08 05:44] LABS: MEAN CELL VOLUME 95 fl (80.0-100.0); MEAN CORPUSCULAR HGB CONC 32 g/dl (33.0-37.0); MEAN PLATELET VOLUME 9.5 fl (7.4-10.4); RED BLOOD COUNT 2.68 M/mm3 (4.20-5.60); REDCELL DISTRIBUTION WIDTH-CV 18.3 % (11.5-14.5)
[2021-10-08 05:47] LABS: HEMATOCRIT 25.4 % (42.0-52.0); HEMOGLOBIN 8.1 g/dl (13.5-18.0); MEAN CORPUSCULAR HEMOGLOBIN 30 pg (27-31); PLATELET COUNT 176 K/mm3 (130-400)
[2021-10-08 06:10] LABS: ALBUMIN 2.8 gm/dL (3.5-5.0); CALCIUM 8.2 mg/dL (8.4-10.2); CREATININE, serum 0.7 mg/dL (0.72-1.25); MAGNESIUM 1.7 mg/dL (1.6-2.6); PHOSPHOROUS 2.7 mg/dL (2.3-4.7); POTASSIUM 4.1 mmol/L (3.5-4.5)
[2021-10-08 06:17] LABS: BAND 1 % (0-10); EOSINOPHIL 3 % (0-4); HYPOCHROMIA 1+; LYMPHOCYTE 35 % (20.0-51.0); MYELOCYTE 1 % (0-0); NEUTROPHILS 60 % (42.0-75.2); POLYCHROMASIA 1+; TARGET CELLS 1+
[2021-10-08] MEDS ORDERED: INDERAL80 MG PO (07:42)
--- NOTE | 2021-10-08 10:31 | NUR ---
Social Work student met with patient to discuss discharge planning. Patient lives here in [place] with his , Latricia(ph#[phone]). Patient sees Dr. Browning for primary care, and he receives his medications from [facility]. Patient states that he had trouble at first with his Eliquis, but he stated, "I found an online coupon that made it $10." Patient does not utilize any durable medical equiptment at home, and he is independent with his ADL's. Patient does not have a DPOA-HC established, but he stated that he "will be meeting with his immigration attorney" to discuss these legal forms. SW found next of kin. Patient is legally and has one child under 18 named Michael. *Discharge plan: Home*
[2021-10-08 16:24] LABS: HEMATOCRIT 24.6 % (42.0-52.0)
[2021-10-08 22:08] LABS: HEMATOCRIT 23.6 % (42.0-52.0); HEMOGLOBIN 7.8 g/dl (13.5-18.0)
[2021-10-09] VITALS (645 sets, daily range): BP systolic 95–132; BP diastolic 47–83; PULSE 83–90; TEMP 97.8–983; O2SAT 62–100
--- NOTE | 2021-10-09 06:06 | NUR ---
ASSUMED CARE OF PATIENT AFTER RECEIVING BEDSIDE REPORT. ASSESSMENT COMPLETED, VSS. PATIENT REPORTS PAIN MEDICATION IS NOT PROVIDING ADEQUATE PAIN RELIEF. NOTIFIED JUSTICE FLEMING, NEW ORDER RECEIVED FOR INCREASED DOSE. PATIENT TOLERATED WELL. NO OTHER QUESTIONS OR CONCERNS VOICED. NO ACUTE EVENTS OVERNIGHT. BEDSIDE REPORT TO BE GIVEN TO ONCOMING SHIFT.
[2021-10-09 06:35] LABS: BASO % 0.3 % (0.0-2.0); EOS # 0.1 K/mm3 (0.0-0.7); EOS % 3.5 % (0.0-4.0); GRAN # 1.6 K/mm3 (1.4-6.5); GRAN % 49.6 % (42.2-75.2); LYMPH # 1.2 K/mm3 (1.2-3.4); LYMPH % 37.4 % (20.0-51.0); MEAN CELL VOLUME 94 fl (80.0-100.0); MEAN CORPUSCULAR HGB CONC 32 g/dl (33.0-37.0); MEAN PLATELET VOLUME 9.2 fl (7.4-10.4); MONO # 0.3 K/mm3 (0.1-0.6); MONO % 8.6 % (1.7-9.3); PLATELET COUNT 161 K/mm3 (130-400); RED BLOOD COUNT 2.51 M/mm3 (4.20-5.60); REDCELL DISTRIBUTION WIDTH-CV 17.4 % (11.5-14.5)
[2021-10-09 06:40] LABS: HEMATOCRIT 23.5 % (42.0-52.0); HEMOGLOBIN 7.5 g/dl (13.5-18.0); MEAN CORPUSCULAR HEMOGLOBIN 30 pg (27-31)
[2021-10-09 06:54] LABS: CALCIUM 8.4 mg/dL (8.4-10.2); CREATININE, serum 0.67 mg/dL (0.72-1.25); MAGNESIUM 1.8 mg/dL (1.6-2.6); PHOSPHOROUS 3.9 mg/dL (2.3-4.7); POTASSIUM 3.7 mmol/L (3.5-4.5)
--- NOTE | 2021-10-09 08:15 | NUR ---
Resting in bed; Patient arouses easily and A&O X4. Reports 5/10 abdominal pain which he is "unable to describe". Pain is not new since current illness. Denies need for pain medication at this time. Denies any other concerns. Call light left within reach.
[2021-10-09 16:41] LABS: HEMOGLOBIN 7.7 g/dl (13.5-18.0)
--- NOTE | 2021-10-09 19:32 | NUR ---
Pt had uneventful day after arriving to the floor. He is A/O x4 and independent in the room. Reported some pain all over body, PRN pain medication adminstered. Breathing is even and unlabored on RA. No N/V/D. POC discussed with patient who will be NPO for IVC filter tomorrow.
[2021-10-10] VITALS (12 sets, daily range): BP systolic 94–132; BP diastolic 35–75; PULSE 77–93; TEMP 98–98.7
--- NOTE | 2021-10-10 05:56 | NUR ---
ASSESSMENT COMPLETE FOR THIS SHIFT. PT RESTING IN HIS RECLINER WATCHING TV. PT COMPLAINED OF GENERALIZED PAIN. PT GIVEN ROXICODONE FOR PAIN. PT FELT PAIN MEDICATION WAS EFFECTIVE. PT DENIED PALPITATIONS, N,V,D, SOB OR DIZZINESS. PT NPO AFTER MIDNIGHT. PT EXPRESSED NO OTHER NEEDS AT THIS TIME. CALL LIGHT WITHIN REACH.
[2021-10-10 06:31] LABS: BASO % 0.3 % (0.0-2.0); EOS # 0.1 K/mm3 (0.0-0.7); EOS % 2.2 % (0.0-4.0); GRAN # 1.7 K/mm3 (1.4-6.5); GRAN % 47.5 % (42.2-75.2); LYMPH # 1.3 K/mm3 (1.2-3.4); LYMPH % 36.9 % (20.0-51.0); MEAN CELL VOLUME 97 fl (80.0-100.0); MEAN CORPUSCULAR HGB CONC 31 g/dl (33.0-37.0); MEAN PLATELET VOLUME 9.6 fl (7.4-10.4); MONO # 0.4 K/mm3 (0.1-0.6); MONO % 12.3 % (1.7-9.3); PLATELET COUNT 190 K/mm3 (130-400); RED BLOOD COUNT 2.53 M/mm3 (4.20-5.60); REDCELL DISTRIBUTION WIDTH-CV 17.6 % (11.5-14.5)
[2021-10-10 06:49] LABS: HEMATOCRIT 24.6 % (42.0-52.0); HEMOGLOBIN 7.7 g/dl (13.5-18.0); MEAN CORPUSCULAR HEMOGLOBIN 30 pg (27-31)
[2021-10-10 06:51] LABS: ALBUMIN 3.2 gm/dL (3.5-5.0); CALCIUM 8.7 mg/dL (8.4-10.2); CREATININE, serum 0.7 mg/dL (0.72-1.25); MAGNESIUM 1.9 mg/dL (1.6-2.6); PHOSPHOROUS 3.8 mg/dL (2.3-4.7); POTASSIUM 3.5 mmol/L (3.5-4.5)
--- NOTE | 2021-10-10 08:25 | NUR ---
PT RESTING IN BED. MORNING MEDICATIONS HELD FOR PROCEDURE. SHIFT ASSESSMENT COMPLETED. PT REPORTS MILD BODY ACHES FROM LAYING IN BED. REMAINS NPO AT THIS TIME FOR PROCEDURE. DENIES SOB, NAUSEA, OR VOMITING. STATES HE HAD ONE BLACK STOOL LAST NIGHT. DENIES ANY NEEDS AT THIS TIME. CONSENT SIGNED AND PLACED ON CHART. WILL CONTINUE TO MONITOR.
[2021-10-10] MEDS ORDERED: PROTONIX 40MG T40 MG PO (09:38)
[2021-10-10] MEDS ORDERED: NATURAL IRON65 MG PO (10:45)
--- NOTE | 2021-10-10 14:49 | NUR ---
SEE MERGE FOR ALL MEDICATION ADMINISTRATION TIMES/DOSAGES AND INTRA/POST PROCEDURE SEDATION ASSESSMENTS.
--- NOTE | 2021-10-10 15:28 | NUR ---
PT BACK ON UNIT AT THIS TIME. R GROIN SITE SOFT WITH NO HEMATOMA, DRESSING C/D/I. VSS. WILL CONTINUE TO MONITOR.
[2021-10-10] MEDS ORDERED: ROXICODONE 55 MG/TAB PO (15:53)
--- NOTE | 2021-10-10 17:25 | NUR ---
DISCHARGE INSTRUCTIONS GIVEN. IV D/C. ALL QUESTIONS ANSWERED. PT ESCORTED DOWN TO VEHICLE. WILL D/C FROM SYSTEM.
== END 2021-10-10 17:26 | disposition home or self-care (01) | DRG 378 ==
LOC: COL.ER 12:58 → ICU 14:24 → MEDICAL 10-09 15:55
PROVIDERS: Internal Medicine Gastroenterology; Personal Emergency Response Attendant; Physician Assistant; ADMIT Internal Medicine
PROC: 0DJ08ZZ Inspection of Upper Intestinal Tract, Via Natural or Artificial Opening Endoscopic (ICD-10-PCS; 2021-10-07)
PROC: 0W3P8ZZ Control Bleeding in Gastrointestinal Tract, Via Natural or Artificial Opening Endoscopic (ICD-10-PCS; principal; 2021-10-08 11:30)
PROC: 06H03DZ Insertion of Intraluminal Device into Inferior Vena Cava, Percutaneous Approach (ICD-10-PCS; 2021-10-10)
DX: K31.82 Dieulafoy lesion (hemorrhagic) of stomach and duodenum (principal); D62 Acute posthemorrhagic anemia; I10 Essential (primary) hypertension; E78.00 Pure hypercholesterolemia, unspecified; G43.909 Migraine, unspecified, not intractable, without status migrainosus; K21.9 Gastro-esophageal reflux disease without esophagitis; K31.7 Polyp of stomach and duodenum; I95.9 Hypotension, unspecified; Z79.01 Long term (current) use of anticoagulants; Z86.711 Personal history of pulmonary embolism; Z86.718 Personal history of other venous thrombosis and embolism
CPT/HCPCS: 99223-AI; 99233-AI; 99239; C1880; C1894; C9113; J2250; J2270; J2405; J2704; J2765; J3010; J7030; P9016; Q9967

== ENCOUNTER → 2022-02-06 | Outpatient (CLI) | payer BC ==
[~2022-02-06] MED LIST changes: +AMITRIPTYLINE H10 M1 PO; +AMOXICILLIN 8751 TAB PO; +INDERAL80 MG PO; +NATURAL IRON65 MG PO; +PROTONIX 40MG T40 MG PO
== END ==
LOC: COL.RAD 08:05
DX: M19.011 Primary osteoarthritis, right shoulder (principal); M75.101 Unspecified rotator cuff tear or rupture of right shoulder, not specified as traumatic